=== PATIENT | female | born 1945 | race Caucasian/White ===

== ENCOUNTER 2018-01-13 11:14 | Emergency (ER) | payer MEDICARE, OTHER, SELFPAY ==
[2018-01-13 11:22] VITALS: BP 191/70; PULSE 78; RESP 18; TEMP 36.9; O2SAT 98
--- NOTE | 2018-01-13 11:56 | DI.CT.S_ITS ---
PROCEDURE: CT HEAD/BRAIN WO CON INDICATIONS: Dizziness, NO TPA TECHNIQUE: Noncontrast 4.5 mm thick angled axial sections acquired from the foramen magnum to the vertex, with coronal and sagittal reformats. For radiation dose reduction, the following was used: automated exposure control, adjustment of mA and/or kV according to patient size. COMPARISON: [facility], CT, HEAD WITHOUT CONTRAST, 09/27/2015, 7:40. FINDINGS: Image quality: Excellent. CSF spaces: Basal cisterns are patent. No extra-axial fluid collections. The ventricles are symmetric in size and shape. Brain: No intracranial bleeds or masses. There is cerebral volume loss for age, with resultant ventricular and sulcal prominence. There are periventricular and deep white matter chronic small vessel ischemic changes. There is intracranial internal carotid artery atherosclerosis. Skull and face: Calvarium and visualized facial bones appear intact, without suspicious lesions. Sinuses: Visualized sinuses and mastoids are clear. IMPRESSION: Minimal stable appearing microvascular atherosclerotic change in the deep white matter of each hemisphere, with reference to the prior CT from September of 2015. No source of new symptoms is found. Dictated by: Mitchell Isidro M.D. on 01/13/2018 at 12:11 Approved by: Mitchell Isidro M.D. on 01/13/2018 at 12:12
[2018-01-13] MEDS: SODIUM CHLORIDE 0.9% 1,000 ML 150 ML IV (12:12)
[2018-01-13] MEDS: ONDANSETRON 4 MG/2 ML INJ IV (12:12)
[2018-01-13] MEDS: MECLIZINE HCL 12.5 MG TABLET 50 MG PO (12:12)
--- NOTE | 2018-01-13 12:13 | ED.DIZZY ---
HPI - Dizziness General Chief Complaint: Dizziness Stated Complaint: DIZZINESS Time Seen by Provider: 01/13/18 11:48 Source: patient Mode of arrival: ambulatory Limitations: no limitations History of Present Illness HPI Narrative: Patient with hypertension, hyperlipidemia, and diabetes presents to the emergency department with a chief complaint of severe dizziness off and on over the course of the weekend. She states that started upon getting out of bed on Friday. She denies trouble with ataxia or focal neurologic findings such as numbness, tingling or weakness. She has had no blurred vision or trouble with speech. She denies any injury or recent illness. She does state that she frequently has a cough and sore throat. She admits to a strong family history of Parkinson's and states family has noted some increasing in her resting tremors which come and go. She is completely asymptomatic or remaining still. She states turning her head left or right cause no change but standing up makes her very dizzy MD complaint: dizziness Onset (ago): day(s) Timing: sudden onset Description: sense of movement and room spinning History of similar episodes: No History of trauma: No Severity: mild Relieving factors: remaining still Associated symptoms: denies other symptoms Related Data Home Medications Medication Instructions Recorded Confirmed Cinnamon 2,000 mg PO BID #0 02/18/16 01/13/18 aspirin 81 mg PO QPM #0 02/18/16 01/13/18 carvedilol [Coreg] 2 tab PO QAM #0 02/18/16 01/13/18 hydrochlorothiazide 25 mg PO QDAY #0 tab 02/18/16 01/13/18 lisinopril 20 mg PO QPM #0 02/18/16 01/13/18 metformin 1,000 mg PO BIDCC #0 02/18/16 01/13/18 atorvastatin [Lipitor] 10 mg PO HS #0 10/18/16 01/13/18 calcium carbonate-vitamin D3 1 cap PO QAM #0 10/18/16 01/13/18 [Calcium 600 with Vitamin D3] cholecalciferol (vitamin D3) 5,000 unit PO QPM #0 10/18/16 01/13/18 glyburide 5 mg PO QDAY #0 10/18/16 01/13/18 milk thistle 175 mg PO HS #0 03/24/17 06/19/18 carvedilol [Coreg] 6.25 mg PO QPM #0 04/25/17 01/13/18 diltiazem HCl [Cardizem LA] 120 mg PO QPM 01/13/18 01/13/18 Previous Rx's Medication Instructions Recorded meclizine 25 mg PO QID PRN #20 tab 01/13/18 Allergies Allergy/AdvReac Type Severity Reaction Status Date / Time erythromycin base Allergy Unknown Verified 01/13/18 13:38 [ERYTHROMYCIN BASE] latex Allergy Verified 01/13/18 13:38 simvastatin [From Zocor] Allergy Shakiness Verified 01/13/18 13:38 dabigatran etexilate AdvReac Verified 01/13/18 13:38 [From Pradaxa] Review of Systems Review of Systems All systems reviewed & are unremarkable except as noted in HPI and below Constitutional Denies chills, Denies fever(s), Denies lethargy and Denies weakness Eyes Denies change in vision, Denies eye discharge, Denies irritation and Denies loss of vision ENT Ears, Nose, Mouth, and Throat: Denies change in voice, Reports vertigo, Reports dizziness, Denies neck pain and Denies sore throat Cardiovascular Denies chest pain, Denies irregular heart rhythm, Denies lightheadedness, Denies palpitations, Denies dyspnea, Denies dyspnea on exertion and Denies orthopnea Respiratory Denies cough, Denies dyspnea, Denies dyspnea on exertion and Denies wheezing Gastrointestinal Gastrointestinal: Denies abdominal pain, Denies change in bowel habits, Denies diarrhea, Denies nausea and Denies vomiting Genitourinary Denies hematuria, Denies flank pain, Denies urinary incontinence and Denies urinary urgency Musculoskeletal Denies neck pain Integumentary/Breasts Denies pruritus, Denies erythema, Denies rash and Denies wounds Neurologic Denies confusion, Reports vertigo, Reports dizziness, Denies loss of vision and Denies weakness Psychiatric Denies anxiety, Denies confusion, Denies depression, Denies homicidal ideation and Denies suicidal ideation Endocrine Denies palpitations Hematologic/Lymphatic Denies easy bruising Allergic/Immunologic Denies wheezing PFSH Social History Smoking Status: Never smoker Exam Narrative Exam Narrative: Pleasant 72-year-old female resting comfortably in Initial Vital Signs Initial Vital Signs: Vital Signs Temperature 98.5 F 01/13/18 11:22 Pulse Rate 78 01/13/18 11:22 Respiratory Rate 18 01/13/18 11:22 Blood Pressure 191/70 H 01/13/18 11:22 Pulse Oximetry 98 01/13/18 11:22 Const General: cooperative and well developed Nutritional Appearance: well nourished Orientation: alert, awake, oriented x3 and not confused [facility] Head: normocephalic and atraumatic Ears: external ears normal and TM's normal bilaterally Nose: external nose normal and No nasal discharge Face and sinus: sinuses nontender, face symmetric, no sinus tenderness and No dry mucous membranes Mouth: oral mucosae normal and moist mucous membranes Teeth and gingiva: dentition normal Throat: tonsils normal and uvula midline Eyes General: appearance normal, both eyes and all related structures Eyelids: eyelids normal Conjunctivae: conjunctivae normal Sclera: sclerae normal Pupils: PERRL EOM: EOM intact bilaterally Other: No nystagmus noted at rest, nor with Schoenchen Hallpike test Neck Neck: normal visual inspection, trachea midline, No lymphadenopathy, No midline deformity and No JVD Lymphatic: No lymphedema Chest Chest: normal inspection of the chest Cardio Rate: regular rate Rhythm: regular rhythm Heart Sounds: no click, no gallops, no murmurs and no rubs Pulses: normal peripheral pulses Back/Spine/Pelvis Back: No CVA tenderness Cervical Spine: cervical ROM normal and No pain with cervical ROM Thoracic/Lumbar Spine: thoracic and lumbar spine normal to inspection Neuro General: alert, oriented x3, gait normal and no focal motor deficits Speech: speech normal Other: NIH Stroke Scale 1a. LOC: Patient is alert and keenly responsive (0) 1b. LOC Questions: Patient answers both LOC questions accurately (0) 1c. LOC Commands: Patient performs both tasks correctly (0) 2. Best Gaze: Normal (0) 3. Visual: No visual loss (0) 4. Facial palsy: Normal symmetrical movements (0) 5. Motor arm: No drift (0) 6. Motor leg: No drift (0) 7. Limb ataxia: Absent (0) 8. Sensory: Normal (0) 9. Best language: No aphasia; normal (0) 10. Dysarthria: Normal (0) 11. Extinction and inattention: No abnormality (0) NIHSS: 0 Extrem General: full ROM, no clubbing, cyanosis or edema, no pedal edema and no calf tenderness Course Orders Ordered: ED Orders 01/13/18 11:56 CT head/brain wo con Stat EKG-12 Lead Stat 01/13/18 12:24 Basic Metabolic Panel Stat Complete Blood Count AUTO DIFF Stat Partial Thromboplastin Time Stat Prothrombin Time INR Stat 01/13/18 13:45 Urine Culture Stat Urine Microscopic Stat 01/13/18 13:49 Rapid Drug Screen, Urine Stat Discontinued Medications Sodium Chloride (Normal Saline 0.9%) 1,000 mls @ 150 mls/hr IV CONT DIANA Last Infusion: 01/13/18 13:43 Dose: 0 mls/hr Admin: 01/13/18 12:12 Dose: 150 mls/hr Meclizine HCl (Antivert) 50 mg PO NOW ONE Stop: 01/13/18 11:57 Last Admin: 01/13/18 12:12 Dose: 50 mg Ondansetron HCl (Zofran) 4 mg IV NOW ONE Stop: 01/13/18 11:57 Last Admin: 01/13/18 12:12 Dose: 4 mg Vital Signs - 8 hr 01/13/18 11:22 01/13/18 12:35 01/13/18 13:30 Temperature 98.5 F Pulse Rate 78 65 61 Respiratory Rate 18 10 L 16 Blood Pressure 191/70 H Blood Pressure [Right Arm] 171/54 H 157/56 H Pulse Oximetry 98 96 98 01/13/18 14:09 01/13/18 15:19 Temperature Pulse Rate 65 66 Respiratory Rate 15 16 Blood Pressure 158/53 H Blood Pressure [Right Arm] 148/45 H Pulse Oximetry 98 98 MDM - Dizziness Differential Diagnosis Likely adverse reaction to drug, benign paroxysmal positional vertigo, orthostatic hypotension, vertebral basilar insufficiency, cerebrovascular accident, acute vestibular neuronitis and transient cerebral ischemia Medical Records Attestation: I reviewed the patient's medical records. Lab Data Attestation: I reviewed the patient's lab results. Result diagrams: 01/13/18 12:24 01/13/18 12:24 Lab Results 01/13/18 01/13/18 01/13/18 Range/Units 12:24 12:24 12:24 WBC 6.1 (4.5-11.0) X10^3/uL RBC 4.28 (4.0-5.2) X10^6/uL Hgb 13.4 (12.0-16.0) g/dL Hct 39.3 (36-46) % MCV 91.8 (80-100) fL MCH 31.2 (26-34) PG MCHC 34.0 (30-36) % RDW 12.9 (11.6-14.8) % Plt Count 217 (150-400) X10^3/uL Neut % (Auto) 73.1 (50-75) % Lymph % (Auto) 20.5 L (25-40) % [place] % (Auto) 5.6 (3-14) % Eos % (Auto) 0.4 L (2-4) % Baso % (Auto) 0.4 (0-2) % Neut # (Auto) 4400 (6800-6604) /uL PT 11.5 (10.1-12.7) SECONDS INR 1.1 (0.9-1.3) APTT 27 (26.4-36.2) SECONDS Sodium 143 (137-145) mmol/L Potassium 4.1 (3.4-5.1) mmol/L Chloride 99 (98-107) mmol/L Carbon Dioxide 29 (22-32) mmol/L BUN 14 (7-17) mg/dL Creatinine 0.50 L (0.52-1.04) mg/dL Estimated GFR > 60.0 (>60) mL/min BUN/Creatinine Ratio 28.0 H (6-22) Glucose 87 (80-110) mg/dL Calcium 9.8 (8.4-10.2) mg/dL Urine RBC (0-5/HPF) Urine WBC (0-5/HPF) Ur Squamous Epith Cells Ur Renal Epithelial Cell Urine Bacteria (None) Ur Culture Indicated? Micro UA Comment Urine Opiates Screen (Negative) Ur Oxycodone Screen (Negative) Urine Methadone Screen (Negative) Ur Barbiturates Screen (Negative) U Tricyclic Antidepress (Negative) Ur Phencyclidine Scrn (Negative) Ur Amphetamines Screen (Negative) U Methamphetamines Scrn (Negative) Ur MDMA Scrn (Ecstasy) (Negative) U Benzodiazepines Scrn (Negative) Urine Cocaine Screen (Negative) U Marijuana (THC) Screen (Negative) 01/13/18 01/13/18 Range/Units 13:45 13:49 WBC (4.5-11.0) X10^3/uL RBC (4.0-5.2) X10^6/uL Hgb (12.0-16.0) g/dL Hct (36-46) % MCV (80-100) fL MCH (26-34) PG MCHC (30-36) % RDW (11.6-14.8) % Plt Count (150-400) X10^3/uL Neut % (Auto) (50-75) % Lymph % (Auto) (25-40) % Refugio % (Auto) (3-14) % Eos % (Auto) (2-4) % Baso % (Auto) (0-2) % Neut # (Auto) (1964-2360) /uL PT (10.1-12.7) SECONDS INR (0.9-1.3) APTT (26.4-36.2) SECONDS Sodium (137-145) mmol/L Potassium (3.4-5.1) mmol/L Chloride (98-107) mmol/L Carbon Dioxide (22-32) mmol/L BUN (7-17) mg/dL Creatinine (0.52-1.04) mg/dL Estimated GFR (>60) mL/min BUN/Creatinine Ratio (6-22) Glucose (80-110) mg/dL Calcium (8.4-10.2) mg/dL Urine RBC None seen (0-5/HPF) Urine WBC 10-30/hpf H (0-5/HPF) Ur Squamous Epith Cells 5-10 /hpf H Ur Renal Epithelial Cell 1-5/hpf Urine Bacteria Few (2-10) H (None) Ur Culture Indicated? Specimen cultured Micro UA Comment Not Reportable Urine Opiates Screen Negative (Negative) Ur Oxycodone Screen Negative (Negative) Urine Methadone Screen Negative (Negative) Ur Barbiturates Screen Negative (Negative) U Tricyclic Antidepress Negative (Negative) Ur Phencyclidine Scrn Negative (Negative) Ur Amphetamines Screen Negative (Negative) U Methamphetamines Scrn Negative (Negative) Ur MDMA Scrn (Ecstasy) Negative (Negative) U Benzodiazepines Scrn Negative (Negative) Urine Cocaine Screen Negative (Negative) U Marijuana (THC) Screen Negative (Negative) Imaging Data CT scan - head: Radiologist's impression: PROCEDURE: CT HEAD/BRAIN WO CON INDICATIONS: Dizziness, NO TPA TECHNIQUE: Noncontrast 4.5 mm thick angled axial sections acquired from the foramen magnum to the vertex, with coronal and sagittal reformats. For radiation dose reduction, the following was used: automated exposure control, adjustment of mA and/or kV according to patient size. COMPARISON: [facility], CT, HEAD WITHOUT CONTRAST, 09/27/2015, 7:40. FINDINGS: Image quality: Excellent. CSF spaces: Basal cisterns are patent. No extra-axial fluid collections. The ventricles are symmetric in size and shape. Brain: No intracranial bleeds or masses. There is cerebral volume loss for age, with resultant ventricular and sulcal prominence. There are periventricular and deep white matter chronic small vessel ischemic changes. There is intracranial internal carotid artery atherosclerosis. Skull and face: Calvarium and visualized facial bones appear intact, without suspicious lesions. Sinuses: Visualized sinuses and mastoids are clear. IMPRESSION: Minimal stable appearing microvascular atherosclerotic change in the deep white matter of each hemisphere, with reference to the prior CT from September of 2015. No source of new symptoms is found. Dictated by: Mitchell Isidro M.D. on 01/13/2018 at 12:11 Approved by: Mitchell Isidro M.D. on 01/13/2018 at 12:12 MDM Narrative Medical decision making narrative: Patient's symptoms were purely reproducible on her arrival. She had no symptoms when lying flat and became intensely dizzy when sitting up. She was given fluids and meclizine and has resolution of symptoms. CT, 3 days into symptoms is unremarkable for stroke, mass or other. She has follow-up with her primary care provider tomorrow Discharge Plan Departure Patient Disposition: Home, Self-Care Clinical Impression: Vertigo Discharge Date/Time: 01/13/18 15:19 Interventions: ED Discharge Assessment Last Done: 01/13/18 15:19 Instructions: DI for Vertigo Activity Restrictions/Additional Instructions: *You have been diagnosed with [ vertigo ] *What to do: *Take medications as directed *Follow up with your primary care provider tomorrow as planned *Return to ER if you should have any new, worsening or concerning symptoms Prescriptions: New meclizine 25 mg tablet 25 mg PO QID PRN (Reason: vertigo) Qty: 20 RF: 0 No Action lisinopril 20 MG tablet 20 mg PO QPM Qty: 0 RF: 0 hydrochlorothiazide 25 MG tablet 25 mg PO QDAY Qty: 0 RF: 0 carvedilol [Coreg] 6.25 MG tablet 2 tab PO QAM Qty: 0 RF: 0 aspirin 81 MG tablet,delayed release (DR/EC) 81 mg PO QPM Qty: 0 RF: 0 metformin 1,000 MG tablet 1,000 mg PO BIDCC Qty: 0 RF: 0 Cinnamon 2,000 mg PO BID Qty: 0 RF: 0 atorvastatin [Lipitor] 10 MG tablet 10 mg PO HS Qty: 0 RF: 0 glyburide 5 MG tablet 5 mg PO QDAY Qty: 0 RF: 0 milk thistle 175 mg Tablet 175 mg PO HS Qty: 0 RF: 0 cholecalciferol (vitamin D3) 5,000 UNIT capsule 5,000 unit PO QPM Qty: 0 RF: 0 calcium carbonate-vitamin D3 [Calcium 600 with Vitamin D3] 600 MG/200 IU capsule 1 cap PO QAM Qty: 0 RF: 0 carvedilol [Coreg] 6.25 MG tablet 6.25 mg PO QPM Qty: 0 RF: 0 diltiazem HCl [Cardizem LA] 120 MG tablet extended release 24 hr 120 mg PO QPM RF: 0
[2018-01-13 12:35] VITALS: BP 171/54; PULSE 65; RESP 10; O2SAT 96
[2018-01-13 12:36] LABS: Add Manual Diff / Slide Review NO; Basophils Percent Auto 0.4 % (0-2); Eosinophils Percent Auto 0.4 % (2-4); Hematocrit 39.3 % (36-46); Hemoglobin 13.4 g/dL (12.0-16.0); INR 1.1 (0.9-1.3); Lymphocytes Percent Auto 20.5 % (25-40); Mean Corpuscular Hemoglobin 31.2 PG (26-34); Mean Corpuscular Volume 91.8 fL (80-100); Monocytes Percent Auto 5.6 % (3-14); Neutrophils Absolute Auto 4400 /uL (3000-5900); Neutrophils Percent Auto 73.1 % (50-75); Platelet Count 217 X10^3/uL (150-400); Prothrombin Time 11.5 SECONDS (10.1-12.7); Red Blood Cell Count 4.28 X10^6/uL (4.0-5.2); Red Cell Distribution Width 12.9 % (11.6-14.8); White Blood Cell Count 6.1 X10^3/uL (4.5-11.0)
[2018-01-13 12:39] LABS: PTT Partial Thromboplastin Tim 27 SECONDS (26.4-36.2)
[2018-01-13 12:42] LABS: Blood Urea Nitrogen 14 mg/dL (7-17); Calcium 9.8 mg/dL (8.4-10.2); Carbon Dioxide 29 mmol/L (22-32); Chloride 99 mmol/L (98-107); Estimated Glomerular Filt Rate > 60.0 mL/min (>60); Glucose 87 mg/dL (80-110); HEMOLYSIS < 15 (0-50); Potassium 4.1 mmol/L (3.4-5.1); Sodium 143 mmol/L (137-145)
[2018-01-13 13:30] VITALS: BP 157/56; PULSE 61; RESP 16; O2SAT 98
--- NOTE | 2018-01-13 13:44 | PC.NURSE ---
Pt reports dizziness improve and feeling almost normal. Pt ambulated to bathroom in stable gait with one person stand by assistance to provide urine sample and back to bed.
[2018-01-13 13:59] LABS: RBC Urine None Seen (0-5/HPF)
[2018-01-13 14:09] VITALS: BP 148/45; PULSE 65; RESP 15; O2SAT 98
[2018-01-13 14:14] LABS: Bacteria Urine Few (2-10); Culture Indicated Urine Specimen Cultured; Renal Epithelial Cells Urine 1-5/HPF; Squamous Epithelial Cell Urine 5-10 /HPF; WBC Urine 10-30/HPF (0-5/HPF)
[2018-01-13 14:16] LABS: Urine Amphetamines Negative (Negative); Urine Barbiturates Negative (Negative); Urine Benzodiazepines Negative (Negative); Urine Cocaine Negative (Negative); Urine MDMA Negative (Negative); Urine Methadone Negative (Negative); Urine Methamphetamines Negative (Negative); Urine Morphine/Opi cutoff 2000 Negative (Negative); Urine Oxycodone Negative (Negative); Urine Phencyclidine Negative (Negative); Urine Tetrahydrocannabinol Negative (Negative); Urine Tricyclic Antidepressant Negative (Negative)
[2018-01-13 15:19] VITALS: BP 158/53; PULSE 66; RESP 16; O2SAT 98
== END 2018-01-13 15:19 | disposition home or self-care (01) ==
PROVIDERS: Emergency Provider Emergency Medicine; Family Provider Family Medicine; PCP Family Medicine
DX: R42 Dizziness and giddiness (principal)
CPT/HCPCS: 70450; 80048; 80305; 81003; 81015; 85025; 85610; 85730; 87086; 93005; 93010; 96361; 96374; 99283; 99284; J2405

== ENCOUNTER → 2018-10-21 12:27 | Outpatient (CLI) | payer MEDICARE, OTHER, SELFPAY | PROVIDERS: Family Provider Family Medicine; PCP Family Medicine; Visit Provider Family Medicine | DX: Z78.0 Asymptomatic menopausal state (principal); Z90.722 Acquired absence of ovaries, bilateral; Z87.891 Personal history of nicotine dependence | CPT/HCPCS: 77080; 77081 ==

== ENCOUNTER → 2018-12-24 08:37 | Outpatient (CLI) | payer MEDICARE, OTHER, SELFPAY ==
--- NOTE | 2018-12-24 | DI.US.S_ITS ---
PROCEDURE: US ABDOMEN COMPLETE INDICATIONS: RUQ TENDERNESS TECHNIQUE: Real-time scanning was performed of the abdominal and retroperitoneal organs, with image documentation. COMPARISON: None. FINDINGS: Liver: Liver is diffusely increased in echogenicity. No focal hepatic abnormalities identified. Normal hepatic size. Gallbladder: Multiple gallstones present. No gallbladder wall thickening or pericholecystic fluid. Negative sonographic Mcclain sign. Biliary ducts: Intrahepatic bile ducts are non-dilated. Extrahepatic bile duct caliber measures 5.1 mm. Normal is 6-7 mm or less in diameter, or 10 mm or less post-cholecystectomy. Pancreas: Visualized portions of the pancreas are sonographically normal. Spleen: Spleen is normal in size and homogeneous in echotexture. Kidneys: Kidneys are normal in size and echotexture. Right kidney measures 10.9 cm long; left kidney measures 11.4 cm long. No hydronephrosis or nephrolithiasis. No solid masses. Aorta: Visualized aorta is normal in caliber at less than 3 cm. Iliacs: Proximal common iliac arteries are normal in caliber at less than 2.5 cm. IVC: Intrahepatic inferior vena cava is patent. Miscellaneous: No free abdominal fluid. IMPRESSION: 1. Increased hepatic echogenicity noted possibly related to hepatic steatosis but other sources of hepatocellular disease cannot be excluded. Recommend clinical correlation. 2. Cholelithiasis without acute cholecystitis. Dictated by: Jacob BENAVIDES Interpreted: Dee Bunn MD on 12/24/2018 at 10:03 Approved by: Dee Bunn M.D. on 12/24/2018 at 13:43
== END ==
PROVIDERS: Family Provider Family Medicine; PCP Family Medicine; Visit Provider Nurse Practitioner Family
DX: R10.811 Right upper quadrant abdominal tenderness (principal); K80.20 Calculus of gallbladder without cholecystitis without obstruction
CPT/HCPCS: 76700

== ENCOUNTER → 2019-01-27 12:59 | Outpatient (CLI) | payer MEDICARE, OTHER, SELFPAY | PROVIDERS: PCP Family Medicine; Visit Provider Surgery | DX: I48.91 Unspecified atrial fibrillation (principal) | CPT/HCPCS: 93005 ==

== ENCOUNTER 2019-02-02 08:37 | Day surgery (SDC) | payer MEDICARE, OTHER, SELFPAY ==
[2019-02-02] VITALS (18 sets, daily range): BP systolic 124–178; BP diastolic 45–72; PULSE 46–64; RESP 8–17; TEMP 36–36.7; O2SAT 92–100
--- NOTE | 2019-02-02 | PATH_ITS ---
[facility] Accession Number: [id number] . 01 Material submitted: . gallbladder - GALLBLADDER . 01 Clinical history: . LAP AQUILINO . 02 Diagnosis: Gallbladder, Laparoscopic Cholecystectomy: Chronic cholecystitis and cholelithiasis. MRV/02/04/2019 . 02 Electronically signed: . Randa Teixeira MD, Pathologist NPI- [id number] . 01 Gross description: . Received in formalin, labeled with the patient's name and gallbladder, is a 7.3 x 3.0 x 2.6 cm intact green-brown gallbladder. The serosa is wrinkled with a roughened liver bed surface. Opening the specimen reveals a normal appearing wall, 0.2 cm in average thickness. The mucosa is green-brown and velvety and green-brown bile is present. One smooth black gallstone is present measuring 1.4 cm in greatest dimension. Fish Culturist sections of gallbladder neck, body, fundus and cystic duct margin are submitted in one cassette. ([id number]) /MRV . 02 Pathologist provided ICD-10: K81.1 . 02 CPT . 532167 Performed at: 01 [facility] [address] [place] [address], [place], [place] [id number] MD Lam Foreman MD Phone: [phone] Performed at: 02 [facility] [place] [address] [place], [place] [id number] MD Destiny Rose MD Phone: [phone]
--- NOTE | 2019-02-02 09:18 | PM.PREOP ---
Pre-operative Note Interval Note History & Physical reviewed/Exam performed by Physician: Yes Changes to H&P: No
[2019-02-02] MEDS: LACTATED RINGERS 1,000 ML 42 ML IV ×3 (09:31→13:08)
[2019-02-02] MEDS: CEFOTETAN 2 GM/50 ML PIGGYBACK IV (09:45)
--- NOTE | 2019-02-02 10:14 | SUR.OPER ---
Supine on padded OR bed, head on pillow, right arm padded and tucked at side,left arm on padded armboard and secured less than 90 degrees a legs uncrossed, safety belt at thigh, tape over blanket over lower legs .
[2019-02-02] MEDS: BUPIVACAINE 0.25% W/ EPI 30 ML VIAL INJ (10:22)
[2019-02-02] MEDS: fentaNYL 100 MCG/2 ML INJ 50 MCG IV ×3 (11:00→11:28)
[2019-02-02] MEDS: ONDANSETRON 4 MG/2 ML INJ IV ×2 (11:06→12:56)
--- NOTE | 2019-02-02 11:10 | PM.OP.1 ---
Operative Date/Time/Diagnoses Date of procedure: 02/02/19 Time of procedure: 11:10 Pre-op diagnosis: Symptomatic Cholelithiasis Post-op diagnosis: same Procedure & Clinicians Procedure: 1. Laparoscopic Cholecystectomy 2. Lysis of Adhesions Same procedure as scheduled: Yes Indications: 73yo F with symptomatic cholelithiasis. Motivated to get it taken care of now as she is in good health. Surgeon: Monisha Tabler Click Yes if Unassisted: Yes Anesthesia Type: General Operative Notes Findings: 1. minimal inflammation of gallbladder 2. adhesions over the liver requiring adhesiolysis 3. normal liver parenchyma Closure Type: primary Specimen(s): other (gallbladder) Estimated Blood Loss (mL): 5 Procedure in detail: The patient was taken to the operating room and placed on operating table in supine position. The abdomen was prepped and draped in sterile fashion and a time out is performed with the team present. Local anesthesia was used to infiltrate each site prior to incision. Using a 15-blade scalpel, a small 5 mm incision was made just to the right of the umbilicus. Using a 5 mm Optiview camera port, the laparoscope was inserted into the abdomen. Once confirmed to be within the peritoneal cavity, the abdomen was insufflated with air. Initial diagnostic laparoscopy showed no injury from initial trocar placement. Three secondary trocars were then placed in the following locations: a 5mm trocar was then placed in the right lateral subcostal margin, a 5mm trocar in the right midclavicular line, and an 11 mm trocar was placed in the midline in the midepigastric area. Pneumoperitoneum was introduced and the abdomen evaluated. Extensive fairly dense adhesions were noted along the anterior surface of the liver, making retraction impossible. Sharp dissection is undertaken to release these with good result and increased mobility of the liver with improved exposure of the gallbladder. A blunt grasper was then used to retract the fundus of the gallbladder up over the dome of the liver. A second blunt grasper was used to retract the infundibulum caudally. Using blunt dissection and electrocautery, the cystic duct and cystic artery were identified. These were circumferentially cleaned distally and proximally. The critical view was seen. Once adequate length was obtained, the cystic duct was triply clipped proximally and singly clipped distally. The cystic artery was doubly clipped proximally and singly clipped distally. The cystic duct and cystic artery were then transected using scissors. The clips were noted to completely traverse their respective structures with no evidence of bile leakage or bleeding. The remaining peritoneal attachments of the gallbladder and the liver bed were taken down using electrocautery. Once free, the gallbladder was placed into an EndoCatch retrieval bag and removed through the 11 mm port. The gallbladder was then passed off as a specimen. The right upper quadrant was suctioned free of any free fluid. The 11mm port site fascia was reapproximated using an EndoClose device and an 0-vicryl suture. The remainder of the local anesthesia was used to provide local analgesia over each of the port sites. The secondary trocars were removed under direct vision noting no bleeding. The abdomen was allowed to desufflate fully. The final trocar was removed. The skin incisions were then reapproximated using 4-0 Monocryl in an interrupted subcuticular fashion. The abdomen was cleaned and dried and steri strips were placed over each of the incisions. The patient was awakened and taken to the postanesthesia care unit in stable condition. All counts were correct at the end of the procedure. Complications: none Condition: stable Disposition: PACU
[2019-02-02] MEDS: METOCLOPRAMIDE 10 MG/2 ML INJ IV (11:21)
--- NOTE | 2019-02-02 11:31 | SUR.PHASEI ---
PACU handoff report: Received report from Kendal Isidro RN. 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 Patient complaining of nausea and pain to right shoulder and back. Medicated per orders. Continue with Plan of care.
[2019-02-02] MEDS: fentaNYL 100 MCG/2 ML INJ 25 MCG IV ×2 (11:44→12:11)
[2019-02-02] MEDS: OXYCODONE/ACETAMINOPHEN 5/325 TABLET 1 TAB PO (12:22)
--- NOTE | 2019-02-02 13:47 | SUR.PHASEII ---
1235 Pt c/o nausea and vomited on her covers. [place] provided, blue bag provided. Pt cleaned. Merilee to give Zofran.
--- NOTE | 2019-02-02 14:15 | SUR.PHASEII ---
Pt held in phase 11
--- NOTE | 2019-02-02 14:16 | SUR.PHASEII ---
Pt held in Phase ll due to emesis and sedation issues. Pt also required 02 at 2L to maintain sats in the 90's, again from issues with sedation. IVF were restarted for additional hydration. Pt recovered completely and was able to dress herself with only minor assistance. Pt was escorted to ED entrance by volunteer via [facility]. D/C'd in stable condition to home.
== END 2019-02-02 14:15 | disposition home or self-care (01) ==
PROVIDERS: PCP Family Medicine; Visit Provider Surgery
PROC: 0FT44ZZ Resection of Gallbladder, Percutaneous Endoscopic Approach (ICD-10-PCS; CPT 47562; principal; 2019-02-02 09:45)
DX: K80.10 Calculus of gallbladder with chronic cholecystitis without obstruction (principal); K66.0 Peritoneal adhesions (postprocedural) (postinfection); E11.9 Type 2 diabetes mellitus without complications; I10 Essential (primary) hypertension
CPT/HCPCS: 47562; 88304; J2405; J2704; J2765; J3010

== ENCOUNTER → 2020-04-08 08:46 | Outpatient (CLI) | payer MEDICARE, OTHER, SELFPAY ==
[2020-04-10 12:32] LABS: COVID19 Sendout Not Detected (Not Detect)
== END ==
PROVIDERS: PCP Family Medicine; Visit Provider Nurse Practitioner
DX: Z11.59 Encounter for screening for other viral diseases (principal)
CPT/HCPCS: 87635

== ENCOUNTER 2020-04-11 06:43 | Day surgery (SDC) | payer MEDICARE, OTHER, SELFPAY ==
--- NOTE | 2020-04-11 | PATH_ITS ---
[facility] Accession Number: [id number] . 01 Material submitted: . PART A: colon - FLAT LESION 65CM PART B: colon - POLYP ASCENDING COLON NEAR CECUM PART C: colon - POLYP AT 105CM PART D: colon - FLAT POLYP AT 95CM . 01 Clinical history: . SDC . 02 Diagnosis: A. Flat Lesion 65 cm, Biopsy: Multiple fragments of colonic mucosa with no significant diagnostic abnormality. Additional levels were examined. Negative for dysplasia and malignancy. . B. Ascending Colon, Polyp Near Cecum, Biopsy: Tubular adenoma. . C. Colon, Polyp at 105 cm, Biopsy: Multiple fragments of colonic mucosa with surface hyperplastic-type changes, most consistent with hyperplastic polyp. Additional levels were examined. Negative for dysplasia and malignancy. . D. Colon, Flat Polyp at 95 cm, Biopsy: Tubular adenoma. [facility] 04/14/2020 1209 Local . 02 Electronically signed: . Destiny Rose MD, Pathologist NPI- [id number] . 01 Gross description: . A. Specimen A is received in formalin, labeled flat lesion 65 cm and consists of four fagan-pink fragments of soft tissue, measuring 1.5 x 1.0 x 0.2 cm in aggregate. The specimen is entirely submitted in cassette A1. B. Specimen B is received in formalin, labeled polyp ascending colon near cecum and consists of three fagan fragments of soft tissue, measuring 0.6 x 0.5 x 0.2 cm in aggregate. The specimen is entirely submitted in cassette B1. C. Specimen C is received in formalin, labeled polyp at 105 cm and consists of five fagan fragments of soft tissue, measuring 1.0 x 0.8 x 0.2 cm in aggregate. The specimen is entirely submitted in cassette C1. D. Specimen D is received in formalin, labeled flat polyp at 95 cm and consists of three fagan fragments of soft tissue, measuring 0.8 x 0.6 x 0.2 cm in aggregate. The specimen is entirely submitted in cassette D1. ([id number]) /[facility] 04/12/2020 1805 Local . 02 Pathologist provided ICD-10: D12.2, D12.6 . 02 CPT . 792144, [id number], [id number], [id number] Performed at: 01 [facility] [address] [id number] MD Lam Foreman MD Phone: [phone] Performed at: 02 [facility] [address] [place], [place] [id number] MD Destiny Rose MD Phone: [phone]
[2020-04-11] MEDS: LACTATED RINGERS 1,000 ML 200 ML IV (07:00)
[2020-04-11 07:15] VITALS: BP 163/65; PULSE 63; RESP 16; TEMP 36.1; O2SAT 96; BMI 30.1
[2020-04-11] MEDS: INSULIN REGULAR 100 UNIT/ML 3 ML VIAL IV (07:57)
--- NOTE | 2020-04-11 07:59 | PM.HP.1 ---
History of Present Illness History of Present Illness Date Patient Seen: 04/11/20 Time Patient Seen: 07:59 Chief complaint: SDC Narrative: The patient is a woman here for a screening exam. Her brother and grandmother had colon cancer. She has had polyps removed. Her last exam was 3 years ago. Patient History Medical History Diabetes (Chronic) HTN (hypertension) (Chronic) Insomnia (Chronic) Obstructive sleep apnea (Chronic) Surgical History (Updated 04/11/20 @ 08:00 by Juwan Quintana MD) History of hip replacement (Resolved) Hx of cataract surgery (Resolved) Hx of dilation and curettage (Resolved) Hx of hysterectomy (Resolved) Status post cholecystectomy (Acute) Family & Social History Family History Brother Hypertension Heart disease Diabetes mellitus Cancer Sister Hypertension Gallstones Stroke Son Hypertension Daughter Hypertension Social History: household members none Tobacco & Substance use: Smoking Status Former smoker alcohol intake current alcohol intake frequency 0-2 drinks per day Substance Use Type does not use Meds Home Medications and Allergies Home Medications Medication Instructions Recorded Confirmed Type aspirin 81 mg PO QPM #0 02/18/16 04/11/20 History carvedilol [Coreg] 2 tab PO QAM #0 02/18/16 04/11/20 History hydrochlorothiazide 25 mg PO QDAY #0 tab 02/18/16 04/11/20 History lisinopril 20 mg PO QPM #0 02/18/16 04/11/20 History metformin 1,000 mg PO BIDCC #0 02/18/16 04/11/20 History atorvastatin [Lipitor] 10 mg PO HS #0 10/18/16 04/11/20 History glyburide 5 mg PO QDAY #0 10/18/16 04/11/20 History carvedilol [Coreg] 6.25 mg PO QPM #0 04/25/17 04/11/20 History Cardizem LA 120 mg PO QPM 01/13/18 04/11/20 History Allergies Allergy/AdvReac Type Severity Reaction Status Date / Time erythromycin base Allergy Severe Gastrointestinal Verified 04/11/20 07:14 [ERYTHROMYCIN BASE] Upset cephalexin Allergy Mild Rash Verified 04/11/20 07:14 latex Allergy Mild Verified 04/11/20 07:14 simvastatin [From Zocor] Allergy Mild Shakiness Verified 04/11/20 07:14 dabigatran etexilate AdvReac Severe Gastrointestinal Verified 04/11/20 07:14 [From Pradaxa] Upset ibuprofen AdvReac Verified 04/11/20 07:14 Review of Systems Review of Systems Narrative: Has a known heart murmur. Had an episode of AFib. Was briefly treated with Pradaxa but the cause bleeding. He is on a beta-nilton which she took this morning and diltiazem which she usually takes in the evening to control her heart rhythm and rate. ROS: Yes All systems reviewed with the patient and are negative except as otherwise documented Exam Vital Signs (past 8 hours): - 04/11/20 07:15 Temperature 97 F L Pulse Rate 63 Respiratory Rate 16 Blood Pressure 163/65 H Pulse Oximetry 96 Oxygen Delivery Method Room Air Narrative Exam Narrative: Pleasant cooperative patient no apparent distress. Lungs are clear to auscultation. No rales or rhonchi. Heart regular rate and rhythm 2/6 systolic murmur heard best at the left sternal border gallop. Abdomen is soft nontender without mass. No obvious hernias. Patient is alert and oriented x3. Assessment & Plan Assessment & Plan narrative: The patient for a screening colonoscopy. I have discussed the procedure with them. Risks of bleeding, perforation which would necessitate major operation, failure to find remove all lesions, the potential tattoo were all discussed. All questions were answered. They wished to proceed.
[2020-04-11 08:00] VITALS: BMI 30.1
--- NOTE | 2020-04-11 08:03 | PM.PREOP ---
Pre-operative Note COVID-19 COVID-19 status: Negative Result date/Date tested (Pos, Neg/Pending): 04/08/20 Interval Note History & Physical reviewed/Exam performed by Physician: Yes Changes to H&P: No ASA Class (for procedural sedation): III
[2020-04-11] MEDS: MIDAZOLAM 5 MG/5 ML VIAL IV (08:06)
[2020-04-11] MEDS: fentaNYL 250 MCG/5 ML INJ IV (08:06)
--- NOTE | 2020-04-11 08:42 | PM.OP.ENDO ---
Operative Date/Time/Diagnoses Date of procedure: 04/11/20 Time of procedure: 08:43 Pre-op diagnosis: Screening exam. Last colonoscopy 3 years ago. Personal history of numerous polyps. Family history of colon cancer in a brother and grandparent Post-op diagnosis: same Procedure & Clinicians Study performed: Colonoscopy with cold biopsies Same procedure as scheduled: Yes Indications: Screening in high risk patient Surgeon: Juwan Quintana Procedure Notes SCOAP/Timeout: Performed Procedure in detail: The patient was placed in the left lateral decubitus position and underwent IV sedation directed by the surgeon consisting of fentanyl and Versed. Digital exam was unremarkable. Visibly patient had numerous external skin tags from probable prior hemorrhoidal disease. The scope was inserted and advanced through the rectum into the sigmoid, descending, transverse, and ascending colon. I biopsied a irregular lesion at 65 cm from the anal verge. I was not clear that this was an abnormal area. It just looks slightly different than the surroundings.. The cecum was reached identified by the ileocecal valve and the appendiceal opening. The scope was gradually brought out. Additional lesions/Polyps were found at the ascending colon near the cecum, at 105 cm from the anal verge and a flat lesion at 95 cm from the anal verge. The scope ultimately was retroflexed in the rectum. The appearance was normal. The scope was removed and the patient tolerated the procedure well. Prep was adequate Scope withdrawal time: 8 minutes (19 total) Sedation minutes: 31 Findings: polyp Specimen(s): other (Polyps/flat lesions) Complications: none Post-procedure Recommendations: Colonscopy in 3 years Disposition: PACU
[2020-04-11 08:44] VITALS: BP 141/56; PULSE 54; RESP 13; TEMP 36.3; O2SAT 93
[2020-04-11 08:49] VITALS: BP 132/51; PULSE 52; RESP 11; O2SAT 93
[2020-04-11 08:54] VITALS: BP 130/52; PULSE 54; RESP 13; TEMP 35.9; O2SAT 94
[2020-04-11 08:59] VITALS: BP 132/54; PULSE 53; RESP 12; TEMP 36.9; O2SAT 94
[2020-04-11 14:52] VITALS: BP 179/70; PULSE 60; RESP 16; TEMP 36.4; O2SAT 96
== END 2020-04-11 09:25 | disposition home or self-care (01) ==
PROVIDERS: PCP Family Medicine; Referring Provider Family Medicine; Visit Provider Specialist
PROC: 0DJD8ZZ Inspection of Lower Intestinal Tract, Via Natural or Artificial Opening Endoscopic (ICD-10-PCS; CPT 45378; principal; 2020-04-11 07:45)
DX: Z12.11 Encounter for screening for malignant neoplasm of colon (principal); Z86.010 Personal history of colon polyps; Z80.0 Family history of malignant neoplasm of digestive organs; E11.9 Type 2 diabetes mellitus without complications; I10 Essential (primary) hypertension; G47.33 Obstructive sleep apnea (adult) (pediatric); D12.2 Benign neoplasm of ascending colon; D12.6 Benign neoplasm of colon, unspecified
CPT/HCPCS: 45380; 99152; 99153; J2250; J3010

== ENCOUNTER → 2022-07-02 16:01 | Outpatient (ROUT) | payer MEDICARE, OTHER, SELFPAY ==
[2022-07-02 17:10] LABS: Influenza A - CEPHEID Flu A NEGATIVE (NEGATIVE); Influenza B - CEPHEID Flu B NEGATIVE (NEGATIVE); Respiratory Syncytial Virus POSITIVE (Negative)
[2022-07-02 17:22] LABS: COVID-19 CEPHEID 4-PLEX PCR Negative (Negative)
== END ==
PROVIDERS: PCP Family Medicine; Visit Provider Registered Nurse
DX: R05.1 Acute cough (principal)
CPT/HCPCS: 0241U

== ENCOUNTER → 2023-06-16 07:12 | Outpatient (CLI) | payer MEDICARE, OTHER, SELFPAY ==
--- NOTE | 2023-06-16 | DI.NM.S_ITS ---
PROCEDURE: NM RICHI PERF SPECT R&S PHARM Rest and pharmacological stress myocardial perfusion SPECT with gated imaging and ejection fraction RADIOPHARMACEUTICAL: 25.4 mCi Tc-99m tetrafosmin IV at rest and 26 mCi Tc-99m tetrafosmin IV at peak effect of pharmacological stress. Uac-lxy-zodyzjvi was performed. INDICATIONS: MILD CORONARY ATHEROSCLEROSIS TECHNIQUE: Radiopharmaceutical was injected at peak stress test, and also at rest. SPECT images were obtained. SPECT myocardial perfusion images were displayed in short axis, horizontal long axis, and vertical long axis views. Gated images were reviewed using ENDOTRONIX software. COMPARISON: None. CARDIAC STRESS: A pharmacologic stress test was performed under the supervision of an attending staff, using an infusion of lexiscan 0.4mg IV X1. Hemodynamic data: There is normal blood pressure and heart rate response to pharmacologic stress. Symptoms: The patient denied anginal chest pain. Aminophylline: none EKG: No diagnostic changes of ischemia; no ectopy. FINDINGS: Raw data: There is good myocardial uptake of radiotracer. No significant motion artifacts. Left ventricle function: Gated images demonstrate normal left ventricular wall thickening. No segmental wall motion abnormalities. No transient ischemic dilation; TID is 1.19 (normal less than 1.3). Left ventricle resting end diastolic volume is 86mL. Left ventricle stress ejection fraction is 84%; normal range is above 45%. Myocardial perfusion: There is normal distribution of activity in the right and left ventricular myocardium. No fixed or reversible perfusion defects. IMPRESSION: Low risk, normal pharm nuclear stress test with normal systolic function (EF post stress 84%). Dictated by: Best Robles MD on 06/17/2023 at 13:11 Approved by: Best Robles MD on 06/17/2023 at 13:13
== END ==
PROVIDERS: PCP Family Medicine; Referring Provider Family Medicine; Visit Provider Family Medicine
DX: I25.10 Atherosclerotic heart disease of native coronary artery without angina pectoris (principal)
CPT/HCPCS: 78452; 93017; A9502; J2785

== ENCOUNTER 2024-02-05 16:03 | Observation (INO) | payer MEDICARE, OTHER, SELFPAY ==
[2024-02-05] VITALS (15 sets, daily range): BP systolic 189–220; BP diastolic 83–113; PULSE 56–71; RESP 12–23; TEMP 36.1–36.3; O2SAT 95–99; BMI 30.2; BMI 30.7
--- NOTE | 2024-02-05 16:31 | DI.CT.S_ITS ---
PROCEDURE: CT ANGIO HEAD AND NECK INDICATIONS: left sided weakness TECHNIQUE: After the administration of intravenous contrast, 1 mm thick sections acquired from the aortic arch through the [place]. 3-dimensional ylucdbe-anvqgmxlt-cnpxeibwrl (MIP) and/or volume rendering reformats were acquired of the central intracranial vasculature and neck separately. For radiation dose reduction, the following was used: automated exposure control, adjustment of mA and/or kV according to patient size. COMPARISON: None. FINDINGS: Image quality: Diagnostic. BRAIN: Please refer to same day CT head.. HEAD CT ANGIOGRAPHY: Anterior circulation: Intracranial internal carotid arteries are normal in size and flow with atherosclerotic calcifications. Hypoplastic right A1. Otherwise, the flow within the paired anterior cerebral arteries is normal and symmetric. The flow within the middle cerebral arteries is normal and symmetric. The anterior communicating artery is seen. No aneurysms are seen. Posterior circulation: Visualized portions of the vertebral arteries demonstrate normal caliber, and join to form a normal appearing basilar artery. Flow within the posterior cerebral arteries is normal and symmetric. No aneurysms are seen. NECK CT ANGIOGRAPHY: Carotid system: The great vessels demonstrate a conventional anatomy as they arise from the aortic arch with atherosclerotic calcifications. The origins of the common carotid arteries appear patent. Mild stenosis of the left common carotid artery. The bifurcation regions demonstrate atherosclerosis with mild, less than 50% stenosis bilaterally. The internal carotid arteries demonstrate normal calibers and courses. Posterior circulation: The origins of the vertebral arteries both appear widely patent. The more superior extracranial portions of both vertebral arteries also demonstrate normal courses and calibers. They join to form a normal appearing basilar artery. Soft tissues: Visualized neck soft tissues demonstrate no suspicious abnormalities. Bones: No suspicious bony lesions. Degenerative changes of the spine. Visualized cervical spine appears normally aligned. IMPRESSION: No significant intracranial arterial abnormality is seen. No significant abnormality is seen within the arteries of the neck. Any quantitative measurements of stenosis were performed using NASCET criteria. Dictated by: Benedict Mariee M.D. on 02/05/2024 at 18:24 Approved by: Benedict Mariee M.D. on 02/05/2024 at 18:29
--- NOTE | 2024-02-05 16:31 | DI.CT.S_ITS ---
PROCEDURE: CT HEAD/BRAIN WO CON INDICATIONS: left sided weakness TECHNIQUE: Noncontrast 4.5 mm thick angled axial sections acquired from the foramen magnum to the vertex, with coronal and sagittal reformats. For radiation dose reduction, the following was used: automated exposure control, adjustment of mA and/or kV according to patient size. COMPARISON: [facility], CT, CT HEAD/BRAIN WO CON, 01/13/2018, 11:53. FINDINGS: Image quality: Diagnostic. CSF spaces: Basal cisterns are patent. No extra-axial fluid collections. The ventricles are symmetric in size and shape. Brain: No intracranial bleeds or masses. There is cerebral volume loss for age, with resultant ventricular and sulcal prominence. There are periventricular and deep white matter chronic small vessel ischemic changes. There is intracranial internal carotid artery atherosclerosis. Skull and face: Calvarium and visualized facial bones appear intact, without suspicious lesions. Bilateral lens replacements. Otherwise, the orbits are unremarkable. Sinuses: Visualized sinuses and mastoids are clear. IMPRESSION: No acute intracranial pathology. Dictated by: Benedict Mariee M.D. on 02/05/2024 at 17:45 Approved by: Benedict Mariee M.D. on 02/05/2024 at 17:47
--- NOTE | 2024-02-05 16:32 | DI.RAD.S_ITS ---
PROCEDURE: XR CHEST 1V INDICATIONS: chest pain TECHNIQUE: One view of the chest was acquired. COMPARISON: [facility], , CHEST 1 VIEW, 04/25/2017, 10:18. FINDINGS: Surgical changes and devices: None. Lungs and pleura: Lungs are clear. No pleural effusions or pneumothorax. Mediastinum: Mediastinal contours appear normal. Heart size is normal. Bones and chest wall: No suspicious bony lesions. Overlying soft tissues appear unremarkable. IMPRESSION: No acute cardiopulmonary abnormality is seen. Dictated by: Benedict Mariee M.D. on 02/05/2024 at 18:29 Approved by: Benedict Mariee M.D. on 02/05/2024 at 18:29
--- NOTE | 2024-02-05 16:36 | PC.NURSE ---
when testing the bellhop bilaterally the left hand bellhop was slightly weaker than right.
--- NOTE | 2024-02-05 16:46 | EKG_ITS ---
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
[2024-02-05] MEDS: ASPIRIN 81 MG CHEW TAB 324 MG PO (16:54)
[2024-02-05 17:14] LABS: Add Manual Diff / Slide Review NO; Basophils Absolute Auto 0 /uL (0-100); Basophils Percent Auto 0.3 % (0-2); Eosinophils Absolute Auto 100 /uL (0-450); Eosinophils Percent Auto 0.7 % (2-4); Hematocrit 37.7 % (36-46); Hemoglobin 12.8 g/dL (12.0-16.0); Lymphocytes Absolute Auto 1300 /uL (1100-4500); Mean Corpuscular Hemoglobin 30.8 PG (26-34); Mean Corpuscular Volume 90.6 fL (80-100); Monocytes Absolute Auto 400 /uL (0-900); Monocytes Percent Auto 5.2 % (3-14); Neutrophils Absolute Auto 6200 /uL (1500-7000); Neutrophils Percent Auto 77.8 % (50-75); Platelet Count 224 X10^3/uL (150-400); Red Blood Cell Count 4.17 X10^6/uL (4.0-5.2); Red Cell Distribution Width 13.4 % (11.6-14.8)
[2024-02-05 17:26] LABS: Alanine Aminotransferase 20 IU/L (<35); Albumin 4.5 g/dL (3.5-5.0); Albumin Globulin Ratio 1.5 (1.0-2.8); Alkaline Phosphatase 83 U/L (38-126); Aspartate Aminotransferase 24 IU/L (14-36); BUN Creatinine Ratio 31.7 (6-22); Bilirubin Total 0.4 mg/dL (0.2-1.3); Blood Urea Nitrogen 26 mg/dL (7-17); Calcium 9.2 mg/dL (8.4-10.2); Carbon Dioxide 26 mmol/L (22-32); Chloride 101 mmol/L (98-107); Creatine Kinase 58 U/L (30-135); Estimated Glomerular Filt Rate > 60 mL/min (>60); Glucose 132 mg/dL (80-110); HEMOLYSIS < 15 (0-50); Lipase 137 U/L (23-300); Potassium 4.1 mmol/L (3.4-5.1); Sodium 135 mmol/L (137-145); Total Protein 7.5 g/dL (6.3-8.2)
[2024-02-05 17:38] LABS: Troponin I < 0.012 ng/mL (0.01-0.034)
--- NOTE | 2024-02-05 19:56 | ED.NEUROSD ---
HPI - Neuro Symptoms/Deficit General Chief Complaint: Neuro Symptoms/Deficit Stated Complaint: Lt arm feels weighed down Time Seen by Provider: 02/05/24 16:31 Source: patient, RN notes reviewed and old records reviewed Mode of arrival: Family Vehicle Limitations: no limitations History of Present Illness HPI Narrative: 78-year-old female with a history of paroxysmal atrial fibrillation, hypertension, dyslipidemia, diabetes on aspirin 81 mg daily. 78-year-old female who presents with complaint of left arm weakness numbness and tingling throughout the day. Patient states she was awake this morning when she noticed that her left arm was weaker she could not lift it or use it properly, had improved after some time but then as she was out and moving about and shopping today she had weakness of her hand persistently dropping her keys and other objects. She states that seems like it is improved at this point. Denies any numbness tingling or weakness elsewhere. No headaches, no vision changes no difficulty with speech, no facial droop, no chest pain or shortness of breath, no nausea or vomiting no issues with bowel movements or urination. Patient states she is intermittently in atrial fibrillation she is on aspirin 81 mg only she does follow up with Cardiology. Takes medication for blood pressure, cholesterol, diabetes. Has had prior hip replacement, cholecystectomy, hysterectomy, prior abdominal cyst removal. Does have multiple allergies to medications. No tobacco, rare alcohol none recently, no recreational drugs. Patient's primary care is Dr. Mccracken, her kettle cook is Dr. Conley. On Anticoagulants: No Related Data Home Medications Medication Instructions Recorded Confirmed aspirin 81 mg tablet,delayed 81 mg PO QPM ##0 02/18/16 02/05/24 release diltiazem HCl 120 mg 120 mg PO QPM 01/13/18 02/05/24 tablet,extended release 24 hr (Cardizem LA) RedMed AirSense 10 Auto 09/25/21 02/05/24 lisinopril 20 1 tab PO QAM 04/09/22 02/05/24 mg-hydrochlorothiazide 25 mg tablet metoprolol succinate 100 mg 100 mg PO QAM 04/09/22 02/05/24 capsule sprinkle, ext. release 24 hr Nf Beet Root 200 mg PO QPM 02/05/24 02/05/24 Nf Preservision Areds 1 tab PO BID 02/05/24 02/05/24 cyanocobalamin (vitamin B-12) 2,500 mcg PO DAILY 02/05/24 02/05/24 2,500 mcg tablet ezetimibe 10 mg tablet 10 mg PO QPM 02/05/24 02/05/24 glipizide 5 mg tablet 5 mg PO QAM 02/05/24 02/05/24 lisinopril 20 mg tablet 20 mg PO QPM 02/05/24 02/05/24 magnesium 200 mg tablet 400 mg PO QPM 02/05/24 02/05/24 metformin 500 mg tablet,extended 1,000 mg PO BID 02/05/24 02/05/24 release 24 hr Allergies Allergy/AdvReac Type Severity Reaction Status Date / Time erythromycin base Allergy Severe Gastrointestinal Verified 04/09/22 09:27 [ERYTHROMYCIN BASE] Upset cephalexin Allergy Mild Rash Verified 04/09/22 09:27 latex Allergy Mild Verified 04/09/22 09:27 simvastatin [From Zocor] Allergy Mild Shakiness Verified 04/09/22 09:27 dabigatran etexilate AdvReac Severe Gastrointestinal Verified 04/09/22 09:27 [From Pradaxa] Upset ibuprofen AdvReac Verified 04/09/22 09:27 Review of Systems Review of Systems ROS Unobtainable: All systems reviewed & are unremarkable except as noted in HPI and below Hematologic/Lymphatic On Anticoagulants: No Patient History Medical History Insomnia Obstructive sleep apnea HTN (hypertension) Diabetes Surgical History Status post cholecystectomy Hx of dilation and curettage Hx of cataract surgery History of hip replacement Hx of hysterectomy Family History Brother Hypertension Heart disease Diabetes mellitus Cancer Sister Hypertension Gallstones Stroke Son Hypertension Daughter Hypertension Social History household members: none occupational status: previously employed Smoking Status: Former smoker alcohol intake: current Smoking Status: Former smoker alcohol intake frequency: 0-2 drinks per day Substance Use Type: does not use Exam Narrative Exam Narrative: GEN: well nourished, well appearing female, alert and oriented x 3, patient appears to be in mild distress. HEENT: Atraumatic, pupils are equal round reactive to light, extraocular movements are intact, nares are clear, there is no conjunctival pallor. Throat is clear without any exudates, erythema, tonsillar enlargement or uvular deviation, no facial droop HEART: Regular rate and rhythm without murmur, clicks, rubs. Pulses are equal in upper and lower extremities LUNGS:Lungs clear to auscultation, no wheezes, rales, crackles, chest moves symmetrically ABD:bowel sounds normal, soft, non-tender, no guarding, rebound, rigidity, no masses noted, no hepatosplenomegaly :No CVA tenderness MSCL: Non-tender, no muscle atrophy, muscles strength 5/5 upper and lower extremities, full range of motion, normal gait NEURO:CN 2-12 intact, sensation normal, finger nose finger test normal, heel oconnor test normal. SKIN: No rash, erythema or other skin changes Initial Vital Signs Initial Vital Signs: Vital Signs Temperature 97.4 F L 02/05/24 16:17 Pulse Rate 71 02/05/24 16:17 Respiratory Rate 18 02/05/24 16:17 Blood Pressure 212/85 H 02/05/24 16:17 Pulse Oximetry 98 02/05/24 16:17 Oxygen Delivery Method Room Air 02/05/24 16:17 Scores NIH Stroke Scale Level of Conciousness: Alert, keenly responsive Ask month/age: Answers both questions correctly. Open/close eyes, close hand: Performs both tasks correctly Best gaze horizontal: Normal Visual harding: No visual loss Facial palsy: Normal symetrical movement Left arm drift: No drift for full 10 sec Right arm drift: No drift for full 10 sec Left leg drift: No drift for full 5 sec Right leg drift: No drift for full 5 sec Limb ataxia: Absent Sensory on face/arms/legs: Normal, no sensory loss Best language: No aphasia, normal Dysarthria: Normal Extinction or inattention: No abnormality Total NIH Stroke scale score: 0 Course Orders Ordered: Acetaminophen (Acetaminophen 325 Mg Tablet) 650 mg PO Q6H PRN PRN Reason: Fever/Mild Pain (1-3) Aspirin (Aspirin Ec 81 Mg Tablet) 81 mg PO QPM DIANA Atorvastatin Calcium (Atorvastatin 20 Mg Tablet) 20 mg PO BEDTIME DIANA Last Admin: 02/05/24 21:54 Dose: 20 mg Documented By: ESTEFANI Enoxaparin Sodium (Enoxaparin 100 Mg/Ml Syringe) 90 mg SUBCUT BID [facility] Last Admin: 02/05/24 22:15 Dose: 90 mg Documented By: ESTEFANI Dextrose (D10w) 100 mls @ 999 mls/hr IV PRN PRN PRN Reason: Hypoglycemia Insulin Human Lispro (Insulin Lispro 100 Unit/Ml 3ml Vial) 0 unit SUBCUT ACHS [facility]; Protocol Last Admin: 02/05/24 21:58 Dose: Not Given Documented By: ESTEFANI Metoprolol Succinate (Metoprolol Er 50 Mg Tablet) 100 mg PO DAILY [facility] Naloxone HCl (Naloxone 0.4 Mg/Ml Vial) 0.2 mg IV Q2MIN PRN PRN Reason: Opiate Reversal Oxycodone HCl (Oxycodone Ir 5 Mg Tablet) 5 mg PO Q3H PRN PRN Reason: Pain, Moderate (4-6) Oxycodone HCl (Oxycodone Ir 10 Mg Tablet) 10 mg PO Q3H PRN PRN Reason: Pain, Severe (7-10) Discontinued Medications Aspirin (Aspirin 81 Mg Chew Tab) 324 mg PO NOW ONE Stop: 02/05/24 16:32 Last Admin: 02/05/24 16:54 Dose: 324 mg Documented By: COLETTE Aspirin (Aspirin 81 Mg Chew Tab) 324 mg PO NOW ONE Stop: 02/05/24 20:40 Last Admin: 02/05/24 20:48 Dose: Not Given Documented By: COLETTE Metoprolol Tartrate (Metoprolol Ir 25 Mg Tablet) 25 mg PO NOW ONE Stop: 02/05/24 21:19 Last Admin: 02/05/24 21:54 Dose: 25 mg Documented By: ESTEFANI Nitroglycerin (Nitroglycerin Oint 1 Inch/Gm Oint...G.) 0.5 inch TOP NOW ONE Stop: 02/05/24 21:19 Last Admin: 02/05/24 21:58 Dose: Not Given Documented By: ESTEFANI Vital Signs Vital signs: Vital Signs - 8 hr 02/05/24 20:30 Respiratory Rate 16 Pulse Oximetry 98 MDM - Neuro Symptoms/Deficit Lab Data 02/05/24 17:05 02/05/24 17:05 Labs: Lab Results 02/05/24 Range/Units 17:05 WBC 8.0 (4.5-11.0) X10^3/uL RBC 4.17 (4.0-5.2) X10^6/uL Hgb 12.8 (12.0-16.0) g/dL Hct 37.7 (36-46) % MCV 90.6 (80-100) fL MCH 30.8 (26-34) PG MCHC 34.0 (30-36) % RDW 13.4 (11.6-14.8) % Plt Count 224 (150-400) X10^3/uL Neut % (Auto) 77.8 H (50-75) % Lymph % (Auto) 16.0 L (25-40) % Kinney % (Auto) 5.2 (3-14) % Eos % (Auto) 0.7 L (2-4) % Baso % (Auto) 0.3 (0-2) % Neut # (Auto) 6200 (6122-5138) /uL Lymph # (Auto) 1300 (8795-2390) /uL Kinney # (Auto) 400 (0-900) /uL Eos # (Auto) 100 (0-450) /uL Baso # (Auto) 0 (0-100) /uL Sodium 135 L (137-145) mmol/L Potassium 4.1 (3.4-5.1) mmol/L Chloride 101 (98-107) mmol/L Carbon Dioxide 26 (22-32) mmol/L BUN 26 H (7-17) mg/dL Creatinine 0.82 (0.52-1.04) mg/dL Estimated GFR > 60 (>60) mL/min BUN/Creatinine Ratio 31.7 H (6-22) Glucose 132 H (80-110) mg/dL Calcium 9.2 (8.4-10.2) mg/dL Total Bilirubin 0.4 (0.2-1.3) mg/dL AST 24 (14-36) IU/L ALT 20 (<35) IU/L Alkaline Phosphatase 83 (38-126) U/L Total Creatine Kinase 58 (30-135) U/L Troponin I < 0.012 (0.01-0.034) ng/mL Total Protein 7.5 (6.3-8.2) g/dL Albumin 4.5 (3.5-5.0) g/dL Globulin 3.0 (1.7-4.1) g/dL Albumin/Globulin Ratio 1.5 (1.0-2.8) Lipase 137 (23-300) U/L ECG Data Attestation: I personally reviewed and interpreted this ECG as follows: Interpretation: Sinus rhythm rate of 63, PA 196 QRS of 94 QTC 427. No acute ST changes. No acute changes. MDM Narrative Medical decision making narrative: 78-year-old female with history of hypertension, dyslipidemia, diabetes, atrial fibrillation that is paroxysmal aspirin 81 mg. Patient had sounds like recurrent symptoms of left upper extremity weakness and numbness which has since resolved. Concerning for TIA was stuttering symptoms. CBC shows a white count of 8 hemoglobin of 12.8 platelets of 224, predominance of neutrophils. Coags are negative, sodium is 135 electrolytes are otherwise appropriate BUN 26 creatinine 0.82 glucose is 132, LFTs are negative with a negative troponin. Head CT is negative. CTA is negative. Chest x-ray is negative. Patient was given aspirin [address] Castillo who is covering accepts for admission. Stroke Core Measures Exclusion Criteria TPA in CVA: Symptom Onset >3 or 4.5 Hours Discharge Plan Departure Patient Disposition: Admitted As Inpatient Clinical Impression: TIA (transient ischemic attack) Admit Date/Time: 02/05/24 20:45 Admit Provider: Nestor Castillo
--- NOTE | 2024-02-05 21:18 | DI.MRI.S_ITS ---
PROCEDURE: MR HEAD/BRAIN WO CON INDICATIONS: stroke TECHNIQUE: Non-contrast axial T1 spin echo, axial T2 fast spin echo, sagittal and axial FLAIR, coronal T2 fast spin echo, axial gradient echo, axial diffusion and ADC through the brain. COMPARISON: [facility], CT, CT ANGIO HEAD AND NECK, 02/05/2024, 17:15. [facility], CT, CT HEAD/BRAIN WO CON, 02/05/2024, 17:15. FINDINGS: Image quality: There is artifact associated with the metallic hardware. CSF spaces: Ventricles appear symmetric in size and shape. Basal cisterns are patent. No extra-axial fluid collections. Brain: No intracranial bleeds or mass effects. There is cerebral volume loss for age. There are periventricular and deep white matter chronic small vessel ischemic changes. Brainstem appears normal. Diffusion-weighted images show no acute infarct. No chronic ischemic insults. Normal intravascular flow voids are present. Skull and face: Calvarial bone marrow is normal in signal. Orbits are normal. Note is made of bilateral lens replacements. Sinuses: Sinuses and mastoids are clear. IMPRESSION: No findings of acute or subacute infarction can be seen. Dictated by: Reno Castro M.D. on 02/06/2024 at 10:08 Approved by: Reno Castro M.D. on 02/06/2024 at 10:10
[2024-02-05] MEDS: METOPROLOL IR 25 MG TABLET PO (21:54)
[2024-02-05] MEDS: ATORVASTATIN 20 MG TABLET PO (21:54)
[2024-02-05] MEDS: ENOXAPARIN 100 MG/ML SYRINGE 90 MG SUBCUT (22:15)
[2024-02-06] VITALS (7 sets, daily range): BP systolic 114–179; BP diastolic 60–89; PULSE 53–94; RESP 16–18; TEMP 36.2–37; O2SAT 97–99
--- NOTE | 2024-02-06 06:00 | DI.ECHO.S_ITS ---
[place] [facility] : : [address] : : [place] : : [id number] : : Phone: [phone] Echocardiogram Report + + :Name: CHERELLE GALO Study Date: 02/06/2024 Height: 67 in : :[facility] ReadingLocation: Weight: 195 lb : : Gender: Female BSA: 2.0 m2 : :: 1945 Age: 78 yrs BP: 166/86 mmHg: :Reason For Study: STROKE : :Ordering Physician: RODRIGO, : :ANDREZ Moya Performed By: Ale Dill : :Referring: ANDREZ WALLACE : + + Interpretation Summary The left ventricle is normal in size. There is mild concentric left ventricular hypertrophy. Left ventricular systolic function appears normal without focal wall motion abnormalities. The ejection fraction is estimated to be 60-65%. Diastolic parameters suggest probable normal left ventricular diastolic function and normal filling pressures. The right ventricle is mildly dilated. The right ventricular systolic function is normal. The right ventricular systolic pressure is estimated to be at least 30 mmHg based on an estimated right atrial pressure of 3 mm Hg. The left atrial size is normal. There is mild mitral regurgitation. The aortic root is normal size. There is no pericardial effusion. There is an anterior echo-free space consistent with a fat pad. No gross cardiac source for stroke. Procedure: A two-dimensional transthoracic echocardiogram with color flow and Doppler was performed. The study quality was technically adequate. Comparison is made with the echocardiogram of 05/15/2017. The patient had occasional PVCs during the exam. The patient was in sinus rhythm with heart rates between 58-67 bpm during the exam. Left Ventricle: The left ventricle is normal in size. There is mild concentric left ventricular hypertrophy. Left ventricular systolic function appears normal without focal wall motion abnormalities. The ejection fraction is estimated to be 60-65%. Diastolic parameters suggest probable normal left ventricular diastolic function and normal filling pressures. Right Ventricle: The right ventricle is mildly dilated. The right ventricular systolic function is normal. Atria: The left atrial size is normal. Right atrial size is normal. There is no Doppler evidence for an interatrial shunt. Mitral Valve: The mitral valve is normal in structure and function. There is mild mitral regurgitation. Aortic Valve: The aortic valve is trileaflet. The aortic valve opens well. There is no aortic valve stenosis. No aortic regurgitation is present. Tricuspid Valve: The tricuspid valve is normal in structure and function. There is mild tricuspid regurgitation. The right ventricular systolic pressure is estimated to be at least 30 mmHg based on an estimated right atrial pressure of 3 mm Hg. Pulmonic Valve: The pulmonic valve leaflets are thin and pliable; valve motion is normal. There is no pulmonic valvular regurgitation. Great Vessels: The aortic root is normal size. The dimensions of the ascending aorta are normal. The IVC is of normal diameter and collapses greater than 50% with a sniff. This suggests a low right atrial pressure of 3 mm Hg. Pericardium/ Pleura There is no pericardial effusion. There is an anterior echo-free space consistent with a fat pad. There is no pleural effusion. MMode/2D Measurements & Calculations LVIDd: 4.4 cm LVOT diam: 1.9 cm LVIDs: 2.8 cm Ao root diam: 2.5 cm FS: 36.6 % asc Aorta Diam: 3.1 cm IVSd: 1.1 cm LVPWd: 1.1 cm LV palmer. diameter/BSA (cm/m^2): 2.2 LV sys. diameter/BSA (cm/m^2): 1.4 LA A2 area: 16.2 cm2 RA long axis: 4.9 cm LA A4 area: 22.0 cm2 RA area: 19.2 cm2 LA length (vol): 6.1 cm RA vol: 64.0 ml LA vol: 49.7 ml RA : 32.0 ml/m2 LA vol index: 24.8 ml/m2 IVC diam: 1.9 cm RVD1 (basal): 4.2 cm RVD2 (mid): 3.1 cm TAPSE: 2.4 cm Doppler Measurements & Calculations Ao V2 max: 141.3 cm/sec LVOT Max Owen: 114.6 cm/sec Ao V2 mean: 100.0 cm/sec LV V1 max P.3 mmHg Ao max P.1 mmHg LV V1 VTI: 29.7 cm Ao mean P.4 mmHg LIZZ(I,D): 2.4 cm2 Ao V2 VTI: 34.4 cm LIZZ(V,D): 2.2 cm2 sev ratio: 0.86 LIZZ indexed to BSA (cm^2/m^2): 1.2 MV E max owen: 99.4 cm/sec TR max owen: 261.1 cm/sec MV A max owen: 49.7 cm/sec TR max P.3 mmHg MV E/A: 2.0 PA V2 max: 109.6 cm/sec Med Peak E' Owen: 6.6 cm/sec PA V2 mean: 78.2 cm/sec E/E' med: 15.2 PA mean P.6 mmHg Lat Peak E' Owen: 8.1 cm/sec PA pr(Accel): 15.6 mmHg E/E' lat: 12.3 E/e' average: 13.7 MV dec time: 0.23 sec SV(LVOT): 80.9 ml Reading Physician:09:42 AM
[2024-02-06] MEDS: METOPROLOL ER 50 MG TABLET 100 MG PO (08:24)
[2024-02-06] MEDS: INSULIN LISPRO 100 UNIT/ML 3ML VIAL SUBCUT (08:26)
--- NOTE | 2024-02-06 10:05 | OT.IP.EVAL ---
Addendum entered and electronically signed by Mary Ellen Dumont OT 02/06/24 10:35: esign Original Note: Past Medical History (Last Reviewed 02/05/24 @ 20:37 by Vidhya Mcrae DO) Diabetes HTN (hypertension) Insomnia Obstructive sleep apnea Surgical History (Last Reviewed 02/05/24 @ 20:37 by Vidhya Mcrae DO) History of hip replacement Hx of cataract surgery Hx of dilation and curettage Hx of hysterectomy Status post cholecystectomy Occupational Therapy Inpatient Evaluation/Re-Eval M1 PT/OT-IP Prior Functional Status Start: 02/06/24 10:09 Freq: NEEDED Status: Active Protocol: Document 02/06/24 10:09 [facility] (Rec: 02/06/24 10:25 [facility] [id number]) Medical Review Prior Functional Status Communication Independent Mobility and Gait I Activities of Daily Living and IADL's I with all needs. Social History Household Members none Living Arrangements House Number of Floors (Floors) Two Floors Number of Stairs To Enter/Railing? 2 steps with no rail to landing and then another 4 steps with bilateral rails to get into the house. Pt has 7 steps, landing and another 7 steps with bilateral rails to go upstairs. Home Environment High Toilet,Walk in Shower Home Equipment Hand Held Shower,Grab Bars Near Toilet,Grab Bars In Shower M2 OT-IP Current Condition Start: 02/06/24 10:09 Freq: Status: Active Protocol: Document 02/06/24 10:09 [facility] (Rec: 02/06/24 10:25 [facility] [id number]) Occupational Therapy Current Condition Current Condition Evaluation Date 02/06/24 Treatment Diagnosis TIA Diagnosis Onset Date 02/05/24, left sided weakness M3 OT- IP Subjective and Pain Start: 02/06/24 10:09 Freq: Status: Active Protocol: Document 02/06/24 10:09 [facility] (Rec: 02/06/24 10:25 [facility] [id number]) OT- Subjective Occupational Therapy Visit Type Type Initial Evaluation Visit Start Time 09:35 Visit Stop Time 10:05 Occupational Therapy Visit Comments Patient Comments Pt agreed to do OT eval. Patient/Caregiver Goals To go home. OT Pain Assessment Pain When Pain Assessed At Rest Pain Present Pain Present Denied Pain M4 OT- IP ADL's Start: 02/06/24 10:09 Freq: Status: Active Protocol: Document 02/06/24 10:09 [facility] (Rec: 02/06/24 10:25 [facility] [id number]) OT [id number] General Evaluation Self-Feeding Ability Independent OT ADL-Grooming Comments OT Grooming Comments Pt states to do later. OT ADL-Oral Care Comments Oral Care Comments Not performed. OT ADL-Dressing Comments OT Dressing Comments NOt performed. OT ADL-Toileting General Evaluation Toileting Ability Independent OT ADL-Bathing Comments OT Bathing Comments Pt may benefit from a shower chair. M5 OT- IP IADL's Start: 02/06/24 10:09 Freq: Status: Active Protocol: Document 02/06/24 10:09 [facility] (Rec: 02/06/24 10:25 [facility] [id number]) OT-Instrumental Activities of Daily Living Home Safety Awareness Awareness of Need for Assistance at Home Good Awareness Ability to Problem Solve Emergency Able to Problem Solve Situations Medication Management Medication Management No Deficits Identified Money Management Money Management No Deficits Identified Meal Preparation Meal Preparation No Deficits Identified Charging Machine Operator Charging Machine Operator Comments Pt may need to take her time. Driving Driving Comments Pt aware if feeling not safe to drive would not drive. M6 OT- IP Functional Cognition Start: 02/06/24 10:09 Freq: Status: Active Protocol: Document 02/06/24 10:09 [facility] (Rec: 02/06/24 10:25 [facility] [id number]) Cognitive Factors Limiting Selfcare Function Cognitive Ability Level of Alertness Alert Patient Orientation Name,Age,Birthday,Month,Date, Year,Day of Week,Place, Situation Attention Span Ability Capable of Focused Attention, Capable of Sustained Attention Ability to Follow Commands Able to Follow Multi-Step Commands Safety Awareness No Deficits Noted Problem Solving Ability No deficits Noted Cognitive Comments Cognitive Assessment Comments Pt intact to be able to follow multiple commands. Pt scored 85 seconds on [place] Making Part B which implies at 90th percentile for her age and mild impairments for visual scanning, speed of processing, task switching, mental flexibility, and executive functioning. Pt has mild tremors in her hands which may have increased her time slightly. Pt appears to be at her baseline and is intact. OT- Vision and Hearing OT- Hearing Assessment OT- Hearing Assessment WFL OT- Vision Assessment Visual Acuity Glasses For Reading Visual Attentiveness WFL Occular Pursuits WFL Visual Convergence WFL Visual [place] WFL Diplopia Absent M7 OT- IP Mobility and Balance Start: 02/06/24 10:09 Freq: Status: Active Protocol: Document 02/06/24 10:09 [facility] (Rec: 02/06/24 10:25 [facility] [id number]) OT- Bed Mobility Assessment Supine to Sit Supine to Sit Assist Independent Scooting Scooting to Edge of Bed Independent OT-Transfer Assessment Sit to and From Stand Sit to and from Stand Independent Transfers Transfer Ability Independent Technique Transfer Destination Bed,Chair Transfer Technique Stand Step Pivot Devices Transfer Assistive Devices None Comments Mobility Comments Pt able to move independently in the room. Pt able to move the recliner chair in position safely. OT- Balance Assessment Sitting Balance and Reactions Static Sitting Balance Ability Normal Dynamic Sitting Balance Ability Normal Standing Balance and Reactions Static Standing Balance Ability Normal Dynamic Standing Balance Ability Good M8 OT- IP Objective Assessments Start: 02/06/24 10:09 Freq: Status: Active Protocol: Document 02/06/24 10:09 [facility] (Rec: 02/06/24 10:25 [facility] [id number]) OT Gross Range of Motion Upper Extremity Range of Motion ROM Impairments grossly WFL OT Strength Comments Strength Comments WFL for age and lifestyle OT- Coordination Assessment Upper Extremity Finger to Nose Test Within Functional Limits Finger Tapping Test Within Functional Limits Comments Coordination Comments WFL for need of putting in her earrings. 9 hole peg times right hand 33 sec and left hand 39 seconds- which are below 10% for her age, however pt has bilateral tremors. OT Sensation Assessment Comments Summary Comments Intact for light touch M9 OT- IP Assessment and Plan Start: 02/06/24 10:09 Freq: Status: Active Protocol: Document 02/06/24 10:09 [facility] (Rec: 02/06/24 10:25 [facility] [id number]) OT Summary Assessment and Plan Potential Rehabilitation Potential Excellent Analytic Complexity at Evaluation Low Summary Progress Towards Goals Safe For Discharge Assessment Summary Pt low complexity and appears to be back at her baseline for needs. Pt may benefit from a shower chair. Pt is aware to get assist from her family if needed. Frequency of Treatment Frequency Of Treatment Discharge Discharge Recommendations OT Discharge Recommendations Home with Assistance Home Equipment Needs shower chair? Transportation Needs at Discharge Private Vehicle
--- NOTE | 2024-02-06 10:50 | PT.IIE ---
Surgical History (Last Reviewed 02/05/24 @ 20:37 by Vidhya Mcrae DO) History of hip replacement Hx of cataract surgery Hx of dilation and curettage Hx of hysterectomy Status post cholecystectomy Medical History (Last Reviewed 02/05/24 @ 20:37 by Vidhya Mcrae DO) Diabetes HTN (hypertension) Insomnia Obstructive sleep apnea Physical Therapy Inpatient Evaluation/Re-Eval M1 PT/OT-IP Prior Functional Status Start: 02/06/24 12:34 Freq: NEEDED Status: Active Protocol: Document 02/06/24 10:50 AB (Rec: 02/06/24 12:49 AB [id number]) Medical Review Prior Functional Status Medical History Reviewed Yes Communication able to make needs known Mobility and Gait pt was independent with all mobilities and ambulation without AD Social History Household Members none Living Arrangements House Number of Floors (Floors) Two Floors Number of Stairs To Enter/Railing? pt has split level entry 2 steps without rails to enter the house 5 steps + landing + 5 steps + 7 steps to main level of the house with wide B rails (can only holdon to 1 rail at a time) Home Environment High Toilet,Walk in Shower Home Equipment Straight Cane,Hand Held Shower ,Grab Bars Near Toilet,Grab Bars In Shower M2 PT-IP Current Condition Start: 02/06/24 12:34 Freq: NEEDED Status: Active Protocol: Document 02/06/24 10:50 AB (Rec: 02/06/24 12:49 AB [id number]) Physical Therapy Current Condition Current Condition Evaluation Date 02/06/24 Treatment Diagnosis TIA; difficulty in walking Onset Date 02/05/24 M3 PT-IP Subjective Start: 02/06/24 12:34 Freq: NEEDED Status: Active Protocol: Document 02/06/24 10:50 AB (Rec: 02/06/24 12:49 AB [id number]) Subjective Physical Therapy Visit Type Type Initial Evaluation Visit Start Time 10:50 Visit Stop Time 11:10 Number of BOBBIN PRESSER Visits 0 Physical Therapy Visit Comments Patient Comments agreeable to do PT Therapy Pain Assessment Pain Present Pain Present Denied Pain M4 PT-IP Mobility and Gait Start: 02/06/24 12:34 Freq: NEEDED Status: Active Protocol: Document 02/06/24 10:50 AB (Rec: 02/06/24 12:49 AB [id number]) PT-Bed Mobility Assessment Supine to Sit Supine to Sit Independent Sit to Supine Sit to Supine Independent PT-Transfer Assessment Sit to and From Stand Sit to and from Stand Standby Assistance,1 Person Assistance,Use of Upper Extremities Equipment Transfer Assistive Device None,Gait Belt Orthotic/Prosthetic Devices or Brace: No Transfers Transfer Destination Bed Transfer Technique ambulated Transfer Ability Level of Assist Standby Assistance Comments Mobility Comments pt supine in bed and agreeable to do PT. obtained PLOF and home set up from pt. pt completed supine to sit SBA and ambulated in room without AD SBA. pt agreed to do stairs and ambulated ~ 125 ft without AD SBA towards the stairs. presents with slight lateral trunk lean to the R. pt completed up/down steps using R rail ascending SBA and also completed without rails SBA. pt ambulated back to her room SBA without AD and requested to go back to bed. sit to supine SBA. positioned pt in bed. call light and table placed within reach. Gait Assessment Gait Gait Assistance Required: Standby Assistance Distance (Feet) 125 Able to Maintain Weight Bearing Status Yes During Gait Assistive Devices Assistive Device None,Gait Belt Orthotic/Prosthetic Devices or Brace: No Gait Deviations General Gait Pattern Flexed Trunk Factors Limiting Gait Function Factors Limiting Gait Function Limited Range of Motion,Poor Balance,Poor Safety Awareness Stair Climbing Assessment Evaluation Level of Assist On Stairs Standby Assistance Devices Stair Climbing Assistive Devices None,Right Railing Technique/Endurance Stair Climbing Direction Ascend and Descend Stair Climbing Technique Step Over Step Number of Steps Climbed 3 Query Text: Stair Climbing Set # Repetitions (reps) 2 Comments Stair Climbing Comments pls refer to mobility section for details PT-Balance Assessment Sitting Balance and Reactions Static Sitting Balance Ability Normal Dynamic Sitting Balance Ability Normal Standing Balance and Reactions Static Standing Balance Ability Good Dynamic Standing Balance Ability Good Device Used without AD M5 PT-IP Objective Assessments Start: 02/06/24 12:34 Freq: NEEDED Status: Active Protocol: Document 02/06/24 10:50 AB (Rec: 02/06/24 12:49 AB [id number]) Orientation Orientation/Cognition Level of Alertness Alert Orientation Name,Place,Situation Language Function Ability No Deficits Noted Safety Awareness Understands Safety Issues Memory Description No Deficits Noted Gross Range of Motion Lower Extremity ROM Assessment Within Functional Limits Strength Lower Extremity Strength Assessment Within Functional Limits Sensation Assessment Sensation Gross Sensation WNL Muscle Tone Muscle Tone WNL Yes M6 PT-IP Treatment Start: 02/06/24 12:34 Freq: NEEDED Status: Active Protocol: Document 02/06/24 10:50 AB (Rec: 02/06/24 12:49 AB [id number]) Physical Therapy Treatment Education Education Provided Safety M7 PT-IP Assessment and Plan Start: 02/06/24 12:34 Freq: NEEDED Status: Active Protocol: Document 02/06/24 10:50 AB (Rec: 02/06/24 12:49 AB [id number]) PT Summary Assessment and Plan Potential Rehabilitation Potential Fair Status of Condition at Evaluation Stable Summary Impairments Pain,ROM,Strength,Balance, Coordination,Sensation,Tone, Cognition,Bed Mobility, Transfers,Gait,Activity Tolerance Assessment Summary pt is an 78 y/o F who presented to the ED for L arm weakness/tingling and pt admitted for TIA. pt stated that symptoms resolved. pt requiring SBA for mobility and was able to ambulate without AD ~ 125 ft SBA. SBA provided for safety but pt can be independent in room. No further PT intervention needed at this time. pt may go hme when medically stable. Frequency of Treatment Frequency Of Treatment Discharge Treatment Plan Physical Therapy Treatment Plan Gait Training,Discharge Planning Recommendations To Nursing Amount of Assist Needed Standby Assistance Discharge Recommendations PT Discharge Recommendations Home Transportation Needs at Discharge Private Vehicle
--- NOTE | 2024-02-06 11:20 | P.HP_ITS ---
History of Present Illness History of Present Illness Date Patient Seen: 02/06/24 Time Patient Seen: 11:00 Chief complaint: Lt arm feels weighed down Narrative: Pt presented to ED yesterday with cc of L arm weakness couldn't hold on to her keys. Notes hx of L arm pain when reaching back since bad fall a year ago otherwise no such prior issues. Normal scans and labs and exam on presentation - feels fine back to normal today no further episodes- reviewing scans for now. PFSH Medical History Insomnia Obstructive sleep apnea HTN (hypertension) Diabetes Surgical History Status post cholecystectomy Hx of dilation and curettage Hx of cataract surgery History of hip replacement Hx of hysterectomy Family History Brother Hypertension Heart disease Diabetes mellitus Cancer Sister Hypertension Gallstones Stroke Son Hypertension Daughter Hypertension Social History household members: none occupational status: previously employed Smoking Status: Former smoker alcohol intake: current Meds Home Medications and Allergies Home Medications Medication Instructions Recorded Confirmed Type aspirin 81 mg tablet,delayed 81 mg PO QPM ##0 02/18/16 02/05/24 History release diltiazem HCl 120 mg 120 mg PO QPM 01/13/18 02/05/24 History tablet,extended release 24 hr (Cardizem LA) RedMed AirSense 10 Auto 09/25/21 02/05/24 History lisinopril 20 1 tab PO DAILY 04/09/22 02/06/24 History mg-hydrochlorothiazide 25 mg tablet Nf Beet Root 200 mg PO QPM 02/05/24 02/05/24 History Nf Preservision Areds 1 tab PO BID 02/05/24 02/05/24 History cyanocobalamin (vitamin B-12) 2,500 mcg PO DAILY 02/05/24 02/05/24 History 2,500 mcg tablet ezetimibe 10 mg tablet 10 mg PO QPM 02/05/24 02/05/24 History glipizide 5 mg tablet 5 mg PO DAILY 02/05/24 02/06/24 History lisinopril 20 mg tablet 20 mg PO QPM 02/05/24 02/05/24 History magnesium 200 mg tablet 400 mg PO QPM 02/05/24 02/05/24 History metformin 500 mg tablet,extended 1,000 mg PO BID 02/05/24 02/05/24 History release 24 hr metoprolol succinate 100 mg 100 mg PO DAILY 02/06/24 02/06/24 History tablet,extended release 24 hr Allergies Allergy/AdvReac Type Severity Reaction Status Date / Time erythromycin base Allergy Severe Gastrointestinal Verified 04/09/22 09:27 [ERYTHROMYCIN BASE] Upset cephalexin Allergy Mild Rash Verified 04/09/22 09:27 latex Allergy Mild Verified 04/09/22 09:27 simvastatin [From Zocor] Allergy Mild Shakiness Verified 04/09/22 09:27 dabigatran etexilate AdvReac Severe Gastrointestinal Verified 04/09/22 09:27 [From Pradaxa] Upset ibuprofen AdvReac Verified 04/09/22 09:27 Review of Systems Review of Systems Narrative: all systems reviewed and negative except as otherwise documented in HPI Exam Vital Signs (past 8 hours): - 02/06/24 05:00 02/06/24 08:24 02/06/24 09:00 Temperature 98.6 F 98.0 F Pulse Rate 94 H 88 53 L Respiratory Rate 17 16 Blood Pressure 166/86 H 170/89 H 171/89 H Pulse Oximetry 99 97 Oxygen Flow Rate 0 Oxygen Delivery Method Room Air Oxygen Flow Rate 0 Narrative Exam Narrative: sitting in chair on cell phone HENFL Other: normocephalic - atraumatic Resp Other: moving air well on room air clear to auscultation bilaterally Cardio Other: regular rate and rhythm, s1/s2 GI Other: soft nontender nondistended active bowel sounds Neuro Other: AAOx4, conversant and sensible. CN2-12 grossly intact, moing all limbs equally with 5+ strength bilaterally. Normal sensation in LUE. Objective Labs 02/05/24 17:05 02/05/24 17:05 Labs: Laboratory Results - last 24 hr 02/05/24 17:05 WBC 8.0 RBC 4.17 Hgb 12.8 Hct 37.7 MCV 90.6 MCH 30.8 MCHC 34.0 RDW 13.4 Plt Count 224 Neut % (Auto) 77.8 H Lymph % (Auto) 16.0 L [place] % (Auto) 5.2 Eos % (Auto) 0.7 L Baso % (Auto) 0.3 Neut # (Auto) 6200 Lymph # (Auto) 1300 [place] # (Auto) 400 Eos # (Auto) 100 Baso # (Auto) 0 Sodium 135 L Potassium 4.1 Chloride 101 Carbon Dioxide 26 BUN 26 H Creatinine 0.82 Estimated GFR > 60 BUN/Creatinine Ratio 31.7 H Glucose 132 H Calcium 9.2 Total Bilirubin 0.4 AST 24 ALT 20 Alkaline Phosphatase 83 Total Creatine Kinase 58 Troponin I < 0.012 Total Protein 7.5 Albumin 4.5 Globulin 3.0 Albumin/Globulin Ratio 1.5 Lipase 137 Assessment & Plan Assessment & Plan narrative: #possible TIA #transient LUE numbness/weakness ED scans were negative, today will be getting echo and MRI as well to make sure we're not missing something. Resolution of symptoms seems good at this time. PT/OT consult pending, she seems to do fine getting up walking around. #NIDDM resume home metformin, diabetic diet #HTN resume home meds, monitor BP #HLD continue home zetia Dispo: pending TIA workup, initial labs are reassuring as is resolution of symptoms. Maybe home later if doing well this afternoon and negative reports. PCP: Kaykay MDM: daughter pritesh [phone] code: full diet: diabetic DVT: lovenox Time-Based Coding :: [TOTAL MINUTES] spent with patient and on the chart (including review of chart, obtaining history, exam, reviewing outside data, placing orders, documenting exam and treatment plan, and counseling patient) on [DATE]. Quality VTE Deep Vein Thrombosis/Pulmonary Embolism Present on Admission: No
--- NOTE | 2024-02-06 12:30 | CM.DANOTE ---
DCP Assessment Note: Pt is a 78yo female, resident of [place], is is admitted for a rule out of a TIA. Pt lives in a house alone. Pt's Primary Care Provider is Dr. Cesario Mccracken and insurance is Medicare and [employer]. Reviewed chart and team rounds for pt's medical status and initial discharge needs. DCP met w/patient at bedside; introduced self and role. Pt was found sitting up in chair, alert and oriented, cooperative with assessment. Pt confirmed living situation and being independent at baseline. Pt expressed preference in returning home, was recommended by PT/OT to return home with assistance. Pt denied any discharge needs at this time. Plan: Anticipating dc home in private vehicle when medically cleared. CM team will plan to follow clinical course closely for coordination of discharge plan. IMMANUEL Mack Discharge Planning/Care Management CM Discharge Assessment Start: 02/06/24 12:28 Freq: Status: Active Protocol: Document 02/06/24 12:28 MW (Rec: 02/06/24 12:30 MW [id number]) Discharge Planning Assessment Assigned Councilperson GARO Lynne/Assigned Designee Name Norma Post, Shruthi Contact Information [phone] Advance Directives? No History Provided By Patient,Medical Record Expected Length of Stay 1 Has Patient been admitted in last 30 No days? Prior Living Arrangements House Household Members none Type of transporation used prior to Drives own vehicle admit Independent with ADL's Yes Is patient alert and oriented? Yes Caregiver for Another No Barriers to Discharge No Discharge Plan Home Referrals Initiated None needed Whiteboard Updated in Patient Room with Yes name and ext. # of Councilperson Comment [phone] Please Provide Date Initial DC 02/06/24 Assessment Was Performed Next Review Type Continued Stay Review
--- NOTE | 2024-02-06 12:53 | ST.IPIE ---
Visit Care Team Role Provider Type Vidhya Mcrae DO Emergency Provider Physician Referring Provider Specialty: Emergency Medicine Address: [address] [place] [address], [address] Email: [email or web address] Cesario Mccracken MD Attending Provider Physician Primary Care Provider Specialty: Family Practice Address: [facility], [place], [address] Email: [email or web address] Nestor Castillo MD Admit Provider Physician Other Providers Specialty: Internal Medicine Address: [address] [place] [address], [address], [place], [address] Email: [email or web address] Past Medical History (Last Reviewed 02/05/24 @ 20:37 by Vidhya Mcrae DO) Diabetes (Medical) HTN (hypertension) (Medical) Insomnia (Medical) Obstructive sleep apnea (Medical) ST IP Initial Evaluation Report [employer] Clinical Swallow Evaluation Start: 02/06/24 12:44 Freq: Status: Active Protocol: Document 02/06/24 12:45 MA (Rec: 02/06/24 12:53 MA [id number]) Clinical Swallow Evaluation Session Time Visit Start Time 11:30 Visit Stop Time 12:00 Total Visit Minutes [address] Nestor Castillo Reason for Referral Possible TIA Setting Assessment Location Acute Care Visit Type Note Type Initial evaluation Next Note Type Next Note Type Treatment Note Patient Information Identification Type Name,Wristband History Per H&P: Pt presented to ED yesterday with cc of L arm weakness couldn't hold on to her keys. Notes hx of L arm pain when reaching back since bad fall a year ago otherwise no such prior issues. Normal scans and labs and exam on presenation - feels fine back to normal today - reviewing scans for now. PMHx significant for: Insomnia Obstructive sleep apnea HTN (hypertension) Diabetes Subjective Observations Pt sitting upright in room. Nursing reports no swallowing/ cog/speech concerns. Reported by Patient/Caregiver Current Diet Regular (IDDSI 7) Baseline Feeding Method Independent in self-feeding The IDDSI Framework Protocol: IDDSI.1 Objective Assessment Mental Status Alert,Responsive,Cooperative Oral Integrity WFL Dentition Within normal limits Comment OME revealed oromusculature WFL. Food and Liquid Trials Position During Assessment Upright (90 degrees) Liquids Trialed Thin (IDDSI 0) Solid Trials Regular (IDDSI 7) Administration Type Self-feeding Oral Impairment Within functional limits Oral Phase Comments Pt consumed saltine crackers and 4 oz thin water via cup. For solids Pt demonstrated adequate bite size and rate, adequate mastication time and bolus formation, no oral stasis. For thin hope via straw, adequate sip size and rate, good oral acceptance and containment. Pharyngeal Impairment Within functional limits Pharyngeal Phase Comments No overt s/s of aspiration with all PO trials. Fatigue/Endurance Endurance WNL The IDDSI Framework Protocol: IDDSI.1 Findings Swallowing Function Within functional limits Severity of Swallow Impairment Within functional limits Prognosis Good Impact on Safety and Functioning No limitations Recommendations Instrumental Assessment No Swallowing Treatment No Recommended Solids Regular (IDDSI 7) Recommended Liquids Thin (IDDSI 0) Other Recommendations ST recommends IDDSI 7/IDDSI 0, however recommend re-referral if changes in status occur. ST informally screened cog/ lang/speech which appear WFL. Safety Precautions/Swallowing Remain upright (90 degrees) Recommendations during all oral intake,Upright position at least 30 minutes after meals,Small bites and sips when eating,Slow rate; swallow between bites, Alternate liquids and solids Medication Recommendations As Tolerated Discharge Recommendations Home
--- NOTE | 2024-02-06 17:02 | P.DS_ITS ---
History of Present Illness History of Present Illness Date Patient Seen: 02/06/24 Time Patient Seen: 15:30 Date of Onset of Symptoms: 02/05/24 Chief complaint: Lt arm feels weighed down Narrative: CC: L arm numbness/weakness Feels totally fine still s/p evaluation and scans which do not identify any actionable abnormality will f/up as outpt resume home meds. Discharge Providers Provider Date of admission: 02/05/24 20:45 Discharge Date: 02/06/24 Primary care physician: Cesario Mccracken MD Consults: 02/05/24 21:18 Consult to Discharge Planning Routine Comment: Consult to Occupational Therapy Evaluate & Treat Comment: Physician Instructions: Evaluate and treat Consult to Physical Therapy Evaluate & Treat Comment: Physician Instructions: Evaluate and Treat Consult to Speech Therapy Evaluate & Treat Comment: Physician Instructions: Evaluate and treat 02/06/24 10:16 Consult to Occupational Therapy Evaluate & Treat Comment: Physician Instructions: Evaluate and treat Consult to Physical Therapy Evaluate & Treat Comment: Physician Instructions: Evaluate and Treat Discharge provider: Cesario Mccracken MD Summary Hospital Course Discharge Diagnosis: #possible TIA #transient LUE numbness/weakness #NIDDM #Hypertension #Hyperlipidemia Hospital Course: Pt presented to ED yesterday with cc of L arm weakness couldn't hold on to her keys. Notes hx of L arm pain when reaching back since bad fall a year ago otherwise no such prior issues. Normal scans and labs and exam on presentation - feels fine back to normal today no further episodes- scans and workup were negative, exam was benign, felt ok to go home and f/up as outpt, return precautions discussed Status at Discharge Cognitive/behavioral status at discharge: at baseline, oriented Functional status at discharge: independent ambulation Overall status at discharge: patient is back to baseline Exam Vital Signs (past 8 hours): - 02/06/24 09:20 02/06/24 12:00 Temperature 97.5 F L Pulse Rate 58 L Respiratory Rate 16 Blood Pressure 114/60 150/78 H Pulse Oximetry 98 Oxygen Delivery Method Room Air Oxygen Flow Rate 0 Narrative Exam Narrative: sitting in chair Resp Other: moving air well bilaterally clear to auscultation Cardio Other: regular rate and rhythm, S1/S2 GI Other: soft nontender active bowel sounds Neuro Other: alert awake oriented fully conversant with normal sensation in all extremities normal strength 5/5, gait stable, normal exam Objective Labs 02/05/24 17:05 02/05/24 17:05 Labs: Laboratory Results - last 24 hr 02/05/24 17:05 WBC 8.0 RBC 4.17 Hgb 12.8 Hct 37.7 MCV 90.6 MCH 30.8 MCHC 34.0 RDW 13.4 Plt Count 224 Neut % (Auto) 77.8 H Lymph % (Auto) 16.0 L [place] % (Auto) 5.2 Eos % (Auto) 0.7 L Baso % (Auto) 0.3 Neut # (Auto) 6200 Lymph # (Auto) 1300 [place] # (Auto) 400 Eos # (Auto) 100 Baso # (Auto) 0 Sodium 135 L Potassium 4.1 Chloride 101 Carbon Dioxide 26 BUN 26 H Creatinine 0.82 Estimated GFR > 60 BUN/Creatinine Ratio 31.7 H Glucose 132 H Calcium 9.2 Total Bilirubin 0.4 AST 24 ALT 20 Alkaline Phosphatase 83 Total Creatine Kinase 58 Troponin I < 0.012 Total Protein 7.5 Albumin 4.5 Globulin 3.0 Albumin/Globulin Ratio 1.5 Lipase 137 [facility] History Insomnia Obstructive sleep apnea HTN (hypertension) Diabetes Surgical History Status post cholecystectomy Hx of dilation and curettage Hx of cataract surgery History of hip replacement Hx of hysterectomy Family History Brother Hypertension Heart disease Diabetes mellitus Cancer Sister Hypertension Gallstones Stroke Son Hypertension Daughter Hypertension Social History household members: none occupational status: previously employed Smoking Status: Former smoker alcohol intake: current Discharge Assessment & Plan Assessment and Plan Assessment: #possible TIA #transient LUE numbness/weakness ED scans were negative, echo and MRI unremarkable, PT/OT looks ok - seems resolved, will f/up as outpt. #NIDDM resume home metformin, diabetic diet #HTN resume home meds, monitor BP #HLD continue home zetia Dispo: Home to f/up as outpt PCP: Kaykay MDM: daughter pritesh [phone] code: full diet: diabetic DVT: lovenox Discharge Plan Discharge Plan Patient Disposition: Home Discharge orders & Medications Prescriptions: Continued aspirin 81 MG tablet,delayed release (DR/EC) 81 mg PO QPM Qty: 0 diltiazem HCl [Cardizem LA] 120 MG tablet extended release 24 hr 120 mg PO QPM lisinopril 20 mg tablet 20 mg PO QPM metformin 500 mg tablet extended release 24 hr 1,000 mg PO BID glipizide 5 mg tablet 5 mg PO DAILY magnesium 200 mg Tablet 400 mg PO QPM ezetimibe 10 mg tablet 10 mg PO QPM cyanocobalamin (vitamin B-12) 2,500 mcg Tablet 2,500 mcg PO DAILY Nf Beet Root 200 mg PO QPM Nf Preservision Areds 1 tab PO BID metoprolol succinate 100 mg tablet extended release 24 hr 100 mg PO DAILY (DME) RedMed AirSense 10 Auto See Rx Instructions .Route .MEDSUPPLY Rx Instructions: CPAP Min: 8 Max: 14 DME: [facility] lisinopril-hydrochlorothiazide 20-25 mg tablet 1 tab PO DAILY Follow up/Referrals: Cesario Mccracken MD [Primary Care Provider] - Visit Report/Discharge Packet Stand Alone Forms: Patient Portal/API, Stroke Signs & Symptoms Discharge Data Primary Care Provider: Cesario Mccracken Attending Provider: Cesario Mccracken Admit Date/Time: 02/05/24 20:45 Quality VTE Deep Vein Thrombosis/Pulmonary Embolism Present on Admission: No
--- NOTE | 2024-02-06 17:40 | PC.NURSE ---
Pt has had uneventful day. Denies any discomfort Orders for D/C received. SL D/C intact. CBG WNL Pt discharge instructions given w/ understanding. Pt escorted by staff via W/C to her car per MD approval. D/C in stable condition.
== END 2024-02-06 17:48 | disposition home or self-care (01) ==
LOC: ED 20:43 → AC 20:47
PROVIDERS: Emergency Medicine; Admitting Provider Internal Medicine; Emergency Provider Emergency Medicine; PCP Family Medicine; Referring Provider Emergency Medicine; Visit Provider Family Medicine
DX: R53.1 Weakness (principal); R20.0 Anesthesia of skin; I48.0 Paroxysmal atrial fibrillation; I10 Essential (primary) hypertension; E78.5 Hyperlipidemia, unspecified; E11.9 Type 2 diabetes mellitus without complications; R29.700 NIHSS score 0; Z79.84 Long term (current) use of oral hypoglycemic drugs
CPT/HCPCS: 36415; 70450; 70496; 70498; 70551; 71045; 80053; 82550; 82962; 83690; 84484; 85025; 92610; 93005; 93306; 97116; 97129; 97161; 97165; 99285; G0378; J1650; J1815; Q9967

== ENCOUNTER 2024-11-18 11:03 | Day surgery (SDC) | payer MEDICARE, OTHER, SELFPAY ==
[2024-02-05 21:19] VITALS: BMI 30.7
--- NOTE | 2024-11-18 | PATH_ITS ---
[facility] Accession Number: [id number] No. of containers..02 Tissue . 01 Material submitted: . PART A: colon - COLON,ASCENDING POLYP X 3 PART B: colon - COLON,DESCENDING POLYP X 2 . 01 Diagnosis: A. ASCENDING COLON POLYPS: Tubular adenomas. . B. DESCENDING COLON POLYPS: Tubular adenoma. Hyperplastic polyp. [facility] 11/22/2024 1150 Local . 01 Electronically signed: . Olivia Hopkins MD, Pathologist NPI- [id number] . 01 Gross description: . A. Received in formalin with two identifiers and ascending colon polyps x3, are four fagan soft tissue fragments, 0.4-0.7 cm in greatest dimension, submitted in A1. B. Received in formalin with two identifiers and descending colon polyps x2, are two fagan soft tissue fragments, 1.3 x 0.6 x 0.5 cm and 0.9 x 0.5 x 0.1 cm. Both fragments are bisected and the specimen is submitted entirely in B1. ([id number]) /MRV 11/19/2024 1812 Local . 01 Pathologist provided ICD-10: D12.2, D12.4 . 01 CPT . 218770, 804161 Specimen Comment: A courtesy copy of this report has been sent to [phone] Performed at: [address] [id number] MD Lam Foreman MD Phone: [phone]
[2024-11-18 12:34] VITALS: BP 191/84; PULSE 129; RESP 16; TEMP 37.1; O2SAT 98
--- NOTE | 2024-11-18 12:42 | EKG_ITS ---
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
[2024-11-18] MEDS: LACTATED RINGERS 1,000 ML 42 ML IV (12:53)
[2024-11-18] MEDS: METOPROLOL TARTRATE 5 MG/5 ML INJ IV (12:54)
--- NOTE | 2024-11-18 13:31 | P.HP_ITS ---
History of Present Illness History of Present Illness Date Patient Seen: 11/18/24 Time Patient Seen: 13:31 Chief complaint: Colonoscopy Narrative: Nevaeh is a an 79-year-old woman here for a colonoscopy due to a family history of colon cancer as well as a personal history of colon polyps. See the office note for more details. [facility] Medical History Insomnia Obstructive sleep apnea HTN (hypertension) Diabetes Surgical History Status post cholecystectomy Hx of dilation and curettage Hx of cataract surgery History of hip replacement Hx of hysterectomy Family History Brother Hypertension Heart disease Diabetes mellitus Cancer Sister Hypertension Gallstones Stroke Son Hypertension Daughter Hypertension Social History household members: none occupational status: previously employed Smoking Status: Former smoker alcohol intake: current Meds Home Medications and Allergies Home Medications Medication Instructions Recorded Confirmed Type aspirin 81 mg tablet,delayed 81 mg PO QPM ##0 02/18/16 11/18/24 History release RedMed AirSense 10 Auto 09/25/21 02/05/24 History lisinopril 20 1 tab PO DAILY 04/09/22 11/18/24 History mg-hydrochlorothiazide 25 mg tablet Nf Beet Root 200 mg PO QPM 02/05/24 11/18/24 History Nf Preservision Areds 1 tab PO BID 02/05/24 11/18/24 History cyanocobalamin (vitamin B-12) 2,500 mcg PO DAILY 02/05/24 10/04/24 History 2,500 mcg tablet ezetimibe 10 mg tablet (Zetia) 10 mg PO QPM 02/05/24 11/18/24 History glipizide 5 mg tablet 5 mg PO DAILY 02/05/24 11/18/24 History magnesium 200 mg tablet 400 mg PO QPM 02/05/24 11/18/24 History metformin 500 mg tablet,extended 1,000 mg PO BID 02/05/24 11/18/24 History release 24 hr metoprolol succinate 100 mg 100 mg PO DAILY 02/06/24 11/18/24 History tablet,extended release 24 hr diltiazem HCl 120 mg 240 mg PO DAILY 10/04/24 11/18/24 History tablet,extended release 24 hr (Cardizem LA) lisinopril 20 mg tablet 10 mg PO DAILY 10/04/24 11/18/24 History Allergies Allergy/AdvReac Type Severity Reaction Status Date / Time erythromycin base Allergy Severe Gastrointestinal Verified 11/18/24 12:28 [ERYTHROMYCIN BASE] Upset cephalexin Allergy Mild Rash Verified 11/18/24 12:28 latex Allergy Mild Verified 11/18/24 12:28 simvastatin [From Zocor] Allergy Mild Shakiness Verified 11/18/24 12:28 dabigatran etexilate AdvReac Severe Gastrointestinal Verified 11/18/24 12:28 [From Pradaxa] Upset ibuprofen AdvReac Verified 11/18/24 12:28 Exam Vital Signs (past 8 hours): - 11/18/24 12:34 Temperature 98.7 F Pulse Rate 129 H Respiratory Rate 16 Blood Pressure 191/84 H Pulse Oximetry 98 Oxygen Delivery Method Room Air Oxygen Delivery Method Room Air Const General: No acute distress Assessment & Plan Assessment and plan (1) Personal history of colon polyps, unspecified: Status: Acute Plan Colonoscopy Time-Based Coding :: [TOTAL MINUTES] spent with patient and on the chart (including review of chart, obtaining history, exam, reviewing outside data, placing orders, documenting exam and treatment plan, and counseling patient) on [DATE]. 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
[2024-11-18 14:00] VITALS: BP 158/105; PULSE 72; RESP 16; TEMP 36.8; O2SAT 97
[2024-11-18 14:08] VITALS: BP 134/77; PULSE 101; RESP 18; TEMP 36.6; O2SAT 98
--- NOTE | 2024-11-18 14:11 | PM.OP.COLON ---
Operative Date/Time/Diagnoses Date of procedure: 11/18/24 Time of procedure: 14:11 Pre-op diagnosis: History of polyps Post-op diagnosis: same Procedure & Clinicians Study performed: Colonoscopy Same procedure as scheduled: Yes Surgeon: Phuc Clifton Procedure Notes Procedure in detail: Surgeon: Phuc Clifton MD Anesthesia: Sukh Aguilar D.O. Procedure: The patient was brought to the endoscopy suite, placed in left lateral decubitus position. The patient was connected to monitoring devices. A time-out was performed. Sedation was administered. Once the patient was adequately sedated, a digital rectal exam was performed and was normal. The scope was then inserted and advanced to the cecum where the appendiceal orifice was identified and photographed. The scope was then slowly withdrawn over greater than 6 minutes. The mucosa was thoroughly inspected. There were 3 polyps in the ascending colon removed with cold snare and sent together. The largest polyp was shy of 1 cm. There were 2 polyps in the descending colon across from each other both removed with cold snare. The largest was about 1 cm. The scope was retroflexed in the rectum. No other abnormalities were found The scope was straightened and removed. The patient was awakened and brought to recovery. Scope withdrawal time: 18 minutes Sedation time: 24 minutes EBL: 5 mL Findings: 3 ascending colon polyps less than 1 cm and 2 descending colon polyps, the largest of which was about 1 cm Post-procedure Disposition: PACU
[2024-11-18 14:15] VITALS: BP 146/90; PULSE 98; RESP 15; TEMP 36.4; O2SAT 98
== END 2024-11-18 14:46 | disposition home or self-care (01) ==
PROVIDERS: PCP Family Medicine; Referring Provider Surgery; Visit Provider Surgery
PROC: 0DJD8ZZ Inspection of Lower Intestinal Tract, Via Natural or Artificial Opening Endoscopic (ICD-10-PCS; CPT 45378; principal; 2024-11-18 13:00)
DX: Z12.11 Encounter for screening for malignant neoplasm of colon (principal); Z86.0100 Personal history of colon polyps, unspecified; Z80.0 Family history of malignant neoplasm of digestive organs; G47.33 Obstructive sleep apnea (adult) (pediatric); I10 Essential (primary) hypertension; E11.9 Type 2 diabetes mellitus without complications; Z79.84 Long term (current) use of oral hypoglycemic drugs; Z87.891 Personal history of nicotine dependence; D12.2 Benign neoplasm of ascending colon; D12.4 Benign neoplasm of descending colon; K63.5 Polyp of colon
CPT/HCPCS: 45385; 93005; 93010; J2704